=== PATIENT | female | born 1995 | race Caucasian/White ===

== ENCOUNTER 2022-01-16 14:35 | Outpatient (CLI) | payer OTHER, BC, SELFPAY ==
--- NOTE | 2022-01-16 15:00 | CRLHL7_ITS ---
For Patients: As a result of the Cures Act, medical imaging exams and procedure reports are released immediately into your electronic medical record. You may view this report before your referring provider. If you have questions, please contact your health care provider. INDICATION: Dating and viability. LMP 11/19/2021. COMPARISON: None. TECHNIQUE: Real-time gallardo-scale imaging of the pelvis was performed. FINDINGS: Sonographic imaging demonstrates a single living intrauterine gestation. The embryo has a regular cardiac rate measuring 179 beats per minute. The embryo`s crown-rump length measurement of 2.0 cm corresponds to a gestational age of 8 weeks 4 days with a sonographic due date of 08/24/2022. There is a normal-appearing yolk sac and a developing placenta. There is a 0.5 cm umbilical cord cyst. No evidence of a perigestational hemorrhage. The cervix appears closed. Small nabothian cyst in the cervix. The right ovary measures 3.7 x 1.7 x 2.5 cm and the left ovary measures 3.0 x 1.5 x 2.0 cm. Corpus luteum in the right ovary. No free fluid in the cul-de-sac. IMPRESSION: 1. Single living intrauterine gestation with crown rump length 2.0 cm which corresponds to a gestational age of 8 weeks 4 days with a sonographic due date of 08/24/2022. 2. The clinical gestational age by LMP is 8 weeks 2 days. 3. Subcentimeter umbilical cord cyst. Recommend attention on follow up. Dictated by Mahi Lechuga MD @ 01/16/2022 3:47:15 PM (Electronically Signed)
== END 2022-01-16 14:36 | disposition home or self-care (01) ==
LOC: US 14:41
PROVIDERS: Visit Provider Registered Nurse
DX: Z34.91 Encounter for supervision of normal pregnancy, unspecified, first trimester (principal); Z3A.08 8 weeks gestation of pregnancy
CPT/HCPCS: 76817

== ENCOUNTER 2022-01-16 15:50 | Outpatient (CLI) | payer OTHER, BC, SELFPAY ==
[2022-01-16 18:19] LABS: Hepatitis B Surface Antigen* Negative (Negative)
[2022-01-16 18:28] LABS: HIV 1/2/P24 Combo Screen* Negative (Negative)
[2022-01-16 18:37] LABS: Hepatitis C Virus Antibody* Negative (Negative)
[2022-01-17 11:41] LABS: Chlamydia DNA Amplified* NOT DETECTED (No Detected); GC DNA Amplified* NOT DETECTED (No Detected)
[2022-01-18 17:29] LABS: Rubella Antibody IgG 21.9 IU/mL
[2022-01-19 04:08] LABS: Rapid Plasma Reagin (RPR) Non Reactive (Non Reactive)
== END 2022-01-16 15:51 | disposition home or self-care (01) ==
PROVIDERS: Visit Provider Registered Nurse
DX: Z34.90 Encounter for supervision of normal pregnancy, unspecified, unspecified trimester (principal)
CPT/HCPCS: 86592; 86703; 86762; 86803; 86850; 86900; 86901; 87086; 87340; 87491; 87591

== ENCOUNTER 2022-02-13 07:52 | Outpatient (CLI) | payer OTHER, BC, SELFPAY ==
--- NOTE | 2022-02-13 08:15 | CRLHL7_ITS ---
For Patients: As a result of the Century Cures Act, medical imaging exams and procedure reports are released immediately into your electronic medical record. You may view this report before your referring provider. If you have questions, please contact your health care provider. INDICATION: f/u umb cord cyst COMPARISON: 01.16.22 TECHNIQUE: Real-time gallardo-scale imaging of the pelvis was performed. FINDINGS: Sonographic imaging demonstrates a single living intrauterine gestation. The embryo demonstrates a regular cardiac rate measuring 154 beats per minute. The embryo`s crown-rump length measurement of 6.9 cm corresponds to a gestational age of 13 weeks 1 day with a sonographic due date of 08/20/2022. The yolk sac is not visualized. There are no gross abnormalities noted within the embryo at this early state of development. The gestational sac has a normal appearance. There is no evidence of a perigestational hemorrhage. The amount of fluid within the sac appears appropriate for gestational age. Normal ovaries. IMPRESSION: Resolution of previously noted umbilical cord cyst. Dictated by Federico Gunn MD @ 02/13/2022 10:13:34 AM (Electronically Signed)
== END 2022-02-13 07:53 | disposition home or self-care (01) ==
LOC: US 07:52
PROVIDERS: Visit Provider Registered Nurse
DX: O36.8910 Maternal care for other specified fetal problems, first trimester, not applicable or unspecified (principal)
CPT/HCPCS: 76816

== ENCOUNTER 2022-04-11 09:10 | Outpatient (CLI) | payer OTHER, BC, SELFPAY ==
--- NOTE | 2022-04-11 09:15 | CRLHL7_ITS ---
For Patients: As a result of the Century Cures Act, medical imaging exams and procedure reports are released immediately into your electronic medical record. You may view this report before your referring provider. If you have questions, please contact your health care provider. INDICATION: Evaluate anatomy. COMPARISON: 02/13/2022, 01/16/2022 TECHNIQUE: Real time gallardo scale imaging of the fetus was performed as well as color Doppler analysis of the umbilical vessels. FINDINGS: Sonographic imaging demonstrates a single living intrauterine gestation. Fetus demonstrates a regular cardiac rate of 142 beats per minute. Fetus has a transverse position, head maternal right. The placenta lies anteriorly. Edge of the placenta is located 1.7 cm from the internal cervical os on transvaginal imaging. Amniotic fluid volume appears normal. Single deepest vertical pocket: 3.0 cm. The cervix is closed and measures 3.4 cm in length. The composite ultrasound gestational age is calculated at 21 weeks 0 days with an estimated sonographic due date of 08/22/2022. The estimated weight is 433 grams which lies at the 95th %. The following biometric measurements were obtained: Biparietal diameter: 4.7 cm/20 weeks 1 day 40th% Head circumference: 18.1 cm/20 weeks 3 days 43rd% Abdominal circumference: 17.0 cm/22 weeks 0 days 88th% Femur length: 3.6 cm/21 weeks 3 days 78th% The HC/AC ratio measures: 1.06 range (1.06-1.25) On anatomic survey, there is a normal appearance of the cerebral ventricles, cavum septi pellucidi, cisterna magna and cerebellum. The nose, lips, and facial profile appear normal. The cervical, thoracic and lumbar spine are well visualized and appear normal. There is a normal four-chamber heart view and the left and right ventricular outflow tracts appear normal. The diaphragm and stomach appear normal. The kidneys and bladder also appear normal. There is a normal three-vessel cord and cord insertion site. The four extremities appear normal. IMPRESSION: Concordance of clinical and sonographic dating. No intrinsic abnormalities noted on anatomic survey. Low lying placenta located 1.7 cm from the internal cervical os. Dictated by Federico Gunn MD @ 04/12/2022 9:38:29 AM (Electronically Signed)
== END 2022-04-11 09:11 | disposition home or self-care (01) ==
PROVIDERS: Visit Provider Obstetrics & Gynecology
DX: O44.42 Low lying placenta NOS or without hemorrhage, second trimester (principal); Z3A.20 20 weeks gestation of pregnancy
CPT/HCPCS: 76805; 76817

== ENCOUNTER 2022-06-05 10:43 | Outpatient (CLI) | payer OTHER, SELFPAY ==
[2022-06-05 11:01] VITALS: BP 127/59; PULSE 82
--- NOTE | 2022-06-05 11:34 | CRLHL7_ITS ---
For Patients: As a result of the Century Cures Act, medical imaging exams and procedure reports are released immediately into your electronic medical record. You may view this report before your referring provider. If you have questions, please contact your health care provider. INDICATION: Right flank pain. TECHNIQUE: Ultrasound renal and bladder complete. Corea-scale and color Doppler sonographic images were acquired of the kidneys and urinary bladder. COMPARISON: None. FINDINGS: Right kidney: 13 cm. Left kidney: 13.3 cm. Normal echotexture and cortex. Right renal cyst. Two small foci of questionable twinkle artifacts without discrete posterior acoustic shadowing or echogenicity. Mild prominence of the collecting system/mild hydronephrosis. Bladder: Bladder is relatively decompressed. IMPRESSION: Two small foci of questionable twinkle artifacts without discrete posterior acoustic shadowing or echogenicity. Findings are equivocal for tiny nonobstructing stones. Mild prominence of the collecting system/mild hydronephrosis, which can be seen in the setting physiologic hydronephrosis of . Dictated by Federico Head MD @ 06/05/2022 1:42:31 PM (Electronically Signed)
--- NOTE | 2022-06-05 11:37 | PM.OBLDTN ---
Documented by User: Echo Diaz CNM 06/05/22 16:28 OB - Triage/Final Diagnosis Visit Information Time Seen by Provider: 11:37 Date Seen: 06/05/22 Date of evaluation: 06/05/22 Narrative: Tammi is a 27 year old 1 para 0 at 28 2/7 weeks gestation by LMP, who presents with right sided flank pain. Tammi reports that pain started around 8am and is so intense she can not sit or walk without difficulty. Stated that she tried warm baths, 1000mg of Tylenol, stretching and rest - nothing seemed to help. Denies any contractions, abnormal vaginal discharge or bleeding, cramping, urinary frequency or retention, or dysuria. Tammi reports that she drinks a lot of water every day, but has had very little to drink or eat today. Pt presents from: Home GA: 28 2/7w C/o: Right sided flank pain movement: active Ctx: denies ROM: denies Bleeding: denies Discharge: denies Assessment/plan: 27 yo G1PO @ 28 2/7 Weeks Right sided flank pain Mild CVA tenderness Small Kidney Stones noted on renal ultrasound Consulted with Dr. Carrera Recommended pt increase oral hydration in effort to flush out calculi, or receive IV hydration - pt opts for oral hydration at home. Oxycodone for pain, until symptoms resolve. Follow up at routine visit in 2 days or sooner if symptoms worsen, or fever presents Reason for evaluation: other (Right sided flank pain.) Evaluation Laboratory results: Laboratory Tests 06/05/22 Range/Units 11:01 Urine Color Pending Urine Appearance Pending Urine pH Pending Ur Specific [place] Pending Urine Protein Pending Urine Glucose (UA) Pending Urine Ketones Pending Urine Blood Pending Urine Nitrite Pending Urine Bilirubin Pending Urine Urobilinogen Pending Ur Leukocyte Esterase Pending Vital signs: Vital Signs - 24 hr 06/05/22 11:01 Pulse Rate 82 Blood Pressure 127/59 L Comments: Vital Signs Stable, afebrile FHTs: Baseline: 135 Variability: Moderate Accels: Present Decels: Absent Reactive NST - Yes Ctx: none SVE: deferred Renal ultrasound: IMPRESSION: Two small foci of questionable twinkle artifacts without discrete posterior acoustic shadowing or echogenicity. Findings are equivocal for tiny nonobstructing stones. Mild prominence of the collecting system/mild hydronephrosis, which can be seen in the setting physiologic hydronephrosis of . Final Diagnosis (1) Kidney stone complicating : Status: Acute (2) Supervision of normal first in third trimester: Status: Acute (3) Flank pain in patient: Status: Acute Documented by User: Thuy Pal CNM 06/05/22 16:27 OB - Triage/Final Diagnosis Visit Information Narrative: Tammi is a 27 year old 1 para 0 at 28 2/7 weeks gestation by LMP, who presents with right sided flank pain. Tammi reports that pain started around 8am and is so intense she can not sit or walk without difficulty. Stated that she tried warm baths, 1000mg of Tylenol, stretching and rest - nothing seemed to help. Denies any contractions, abnormal vaginal discharge or bleeding, cramping, urinary frequency or retention, or dysuria. Tammi reports that she drinks a lot of water every day, but has had very little to drink or eat today. Pt presents from: Home GA: 28 2/7w C/o: Right sided flank pain movement: active Ctx: denies ROM: denies Bleeding: denies Discharge: denies Assessment/plan: 27 yo G1PO @ 28 2/7 Weeks Right sided flank pain Mild CVA tenderness Small Kidney Stones noted on renal ultrasound Consulted with Dr. Carrera Recommended pt increase oral hydration in effort to flush out calculi, or receive IV hydration - pt opts for oral hydration at home. Declined Flomax Referral for urology placed Oxycodone for pain, until symptoms resolve. Follow up at routine visit in 2 days or sooner if symptoms worsen, or fever presents Evaluation Comments: Vital Signs Stable, afebrile FHTs: Baseline: 135 Variability: Moderate Accels: Present Decels: Absent Reactive NST - Yes Ctx: none SVE: deferred Abdomen: non tender, gravid Musculoskeletal: Mild CVA tenderness on right side Renal ultrasound:
[2022-06-05 11:40] LABS: Appearance Urine Slightly Cloudy (Clear); Bilirubin Urine Negative (Negative); Blood Urine Trace-lysed (Negative); Color Urine Yellow (Yellow); Glucose Urine Negative (Negative); Ketones Urine Negative (Negative); Leukocyte Esterase Urine 1+ (Negative); Nitrite Urine Negative (Negative); Protein Urine 1+ (Negative); Urobilinogen Urine 0.2 (0.2-1.0)
[2022-06-05 11:51] LABS: Bacteria Urine Many; Squamous Epithelial Cell Urine Moderate (None-Few)
[2022-06-05] MEDS: OXYCODONE 5 MG TABLET PO (12:13)
[2022-06-05 12:17] VITALS: PULSE 84; O2SAT 98
--- NOTE | 2022-06-05 15:37 | PC.OBNST ---
NST Note NST Note Start: 06/05/22 10:53 Freq: ONCE Status: Active Protocol: Document 06/05/22 14:00 ABP (Rec: 06/05/22 15:36 ABP [id number]) NST Note 1 Para (# of births) 0 EDC 08/26/22 Gestational Age In Weeks & Days 28 Weeks & 2 Days Patient Presented with Complaint(s) of Pain If Pain, describe location Back pain Other Complaints Patient diagnosed with 2 kidney stones. Reactive Yes Appropriate for Gestational Age Yes AKIRA Helms, AKIRA Date 06/05/22 Reactive Yes Appropriate for Gestational Age Yes AKIRA Wallis RN Date 06/05/22 OB NST charge Yes Complete NST Note via Write Note Yes The provider's electronic signature indicates the NST is reactive/appropriate for gestational age. *Note to provider: If an addendum is required, open the patient's chart and click on the note under the Nurse/Allied Health tab.
== END 2022-06-05 14:00 | disposition home or self-care (01) ==
LOC: OB OUT 10:43 → OB 10:45
PROVIDERS: Visit Provider Advanced Practice Midwife
DX: O26.839 Pregnancy related renal disease, unspecified trimester (principal); N20.0 Calculus of kidney; R10.9 Unspecified abdominal pain; Z3A.28 28 weeks gestation of pregnancy
CPT/HCPCS: 59025; 76775; 81003; 81015; 87086; 99213; A9270

== ENCOUNTER 2022-06-07 08:09 | Outpatient (CLI) | payer OTHER, SELFPAY ==
--- NOTE | 2022-06-07 08:15 | CRLHL7_ITS ---
For Patients: As a result of the Century Cures Act, medical imaging exams and procedure reports are released immediately into your electronic medical record. You may view this report before your referring provider. If you have questions, please contact your health care provider. INDICATION: Placental location f/u COMPARISON: 04/11/2022 TECHNIQUE: Real time gallardo scale imaging of the fetus was performed. FINDINGS: Sonographic imaging demonstrates a single living intrauterine gestation. Fetus demonstrates a regular cardiac rate of 157 beats per minute. Fetus has a vertex position. The placenta lies anteriorly without evidence of placenta previa. The edge of the placenta is located 6.4 cm from the internal cervical os with transvaginal imaging. Amniotic fluid volume appears normal and there is a single deepest vertical pocket: 7.5 cm. LUCINDA 20.9 cm. IMPRESSION: Anterior placenta 6.4 cm from the internal cervical os. No previa. Dictated by Federico Gunn MD @ 06/07/2022 2:37:36 PM (Electronically Signed)
== END 2022-06-07 08:10 | disposition home or self-care (01) ==
LOC: US 08:09
PROVIDERS: Visit Provider Advanced Practice Midwife
DX: O44.40 Low lying placenta NOS or without hemorrhage, unspecified trimester (principal)
CPT/HCPCS: 76816; 86592

== ENCOUNTER 2022-06-12 09:41 | Outpatient (CLI) | payer OTHER, SELFPAY ==
[2022-06-12 07:48] LABS: Glucose Fasting Check 85 mg/dl (60-115)
[2022-06-12 12:03] LABS: Glucose GTT-Gestational 3 Hr 99 mg/dl (70-140)
[2022-06-12 12:03] LABS: Glucose 1 Hour Gest 148 mg/dl (70-180)
== END 2022-06-12 09:42 | disposition home or self-care (01) ==
PROVIDERS: Visit Provider Advanced Practice Midwife
DX: Z34.03 Encounter for supervision of normal first pregnancy, third trimester (principal); Z3A.30 30 weeks gestation of pregnancy
CPT/HCPCS: 82951; 82952

== ENCOUNTER 2022-07-05 14:06 | Outpatient (CLI) | payer OTHER, SELFPAY ==
[2022-07-05 16:13] LABS: Creatinine* 0.7 mg/dL (0.5-1.5); Estimated Glomerular Filt Rate 122 ml/min
[2022-07-05 16:14] LABS: Alanine Aminotransferase* 16 U/L (4-35); Aspartate Amino Transferase* 19 U/L (12-35); Blood Urea Nitrogen* 9 mg/dL (5-24)
[2022-07-05 16:24] LABS: Total Protein Urine 18 mg/dL
[2022-07-05 16:27] LABS: Creatinine Urine 49.4 mg/dL
== END 2022-07-05 14:07 | disposition home or self-care (01) ==
PROVIDERS: Visit Provider Advanced Practice Midwife
DX: Z34.93 Encounter for supervision of normal pregnancy, unspecified, third trimester (principal); R03.0 Elevated blood-pressure reading, without diagnosis of hypertension; Z3A.32 32 weeks gestation of pregnancy
CPT/HCPCS: 82565; 82570; 84156; 84450; 84460; 84520

== ENCOUNTER 2022-07-10 14:49 | Outpatient (CLI) | payer OTHER, SELFPAY ==
[2022-07-10 21:40] LABS: Total Protein Urine 26 mg/dL
[2022-07-10 21:42] LABS: Creatinine Urine 58.5 mg/dL
[2022-07-10 22:30] LABS: Collection Time Urine 24 Hours; Total Protein 24 Hour Urine 572 mg/dL; Total Volume 24 Hour Urine 2200 ml; Urine Creatinine mg/24 Hour 0 mg/Day
== END 2022-07-10 14:50 | disposition home or self-care (01) ==
LOC: NFLDREF 14:49
PROVIDERS: Visit Provider Advanced Practice Midwife
DX: Z34.93 Encounter for supervision of normal pregnancy, unspecified, third trimester (principal); Z3A.36 36 weeks gestation of pregnancy; R03.0 Elevated blood-pressure reading, without diagnosis of hypertension
CPT/HCPCS: 82570; 84156

== ENCOUNTER 2022-07-12 21:38 | Outpatient (CLI) | payer OTHER, SELFPAY ==
[2022-07-12] VITALS (7 sets, daily range): BP systolic 116–129; BP diastolic 58–74; PULSE 83–97; RESP 16; TEMP 36.8; O2SAT 98
[2022-07-12 22:05] LABS: Hemoglobin* 11.1 gm/dL (12.0-16.0); Mean Corpuscular HGB Conc 34 gm/dL (32-36); Mean Corpuscular Hemoglobin 31 pg (26-34); Mean Corpuscular Volume 91 fL (80-100); Platelet Count* 305 K/uL (140-440); Red Blood Count 3.62 m/uL (4.00-5.20); White Blood Count* 12.39 K/uL (4.50-11.00)
[2022-07-12 22:11] LABS: Slide Review Reflex No
[2022-07-12 22:23] LABS: Creatinine* 0.5 mg/dL (0.5-1.5); Estimated Glomerular Filt Rate 133 ml/min
[2022-07-12 22:24] LABS: Total Protein Urine 28 mg/dL
[2022-07-12 22:24] LABS: Alanine Aminotransferase* 20 U/L (4-35); Aspartate Amino Transferase* 20 U/L (12-35); Blood Urea Nitrogen* 8 mg/dL (5-24)
[2022-07-12 22:36] LABS: Appearance Urine Clear (Clear); Bilirubin Urine Negative (Negative); Blood Urine Trace-intact (Negative); Color Urine Yellow (Yellow); Glucose Urine Negative (Negative); Ketones Urine Negative (Negative); Leukocyte Esterase Urine Negative (Negative); Nitrite Urine Negative (Negative); Protein Urine Negative (Negative); Specific Gravity Urine 1.015 (1.000-1.030); Urobilinogen Urine 0.2 (0.2-1.0)
[2022-07-12 23:00] LABS: WBC Urine 0-2 (0-5)
[2022-07-12 23:06] LABS: Trichomonas No Trichomonas Seen (None Seen); Yeast No Yeast Seen (None Seen)
[2022-07-12 23:07] LABS: Clue Cells <20% Clue Cells Seen (None Seen)
--- NOTE | 2022-07-12 23:33 | P.OBLDTN_ITS ---
Documented by User: Echo iDaz CNM 07/13/22 00:05 OB - Triage/Final Diagnosis Visit Information Time Seen by Provider: 23:33 Date Seen: 07/12/22 Date of evaluation: 07/12/22 Narrative: Subjective Pt had elevated blood pressure in clinic, with elevated pressures on repeat. 24 hr urine returned with Total Protein of 572 and PCR of 0.4. Pt instructed to monitor blood pressures at home and call with readings over 140/90. Pt called tonight for pressures in the 140's/90's. She came into triage for monitoring and labs. BPs were all WNL while in Triage. Denies any other symptoms including headaches, URQ pain, vision changes or pain. Endorsed good movement. Denies loss of fluid, vaginal bleeding or abnormal discharge. TOCO monitor picking up contractions, but pt denies feeling them. Pt reported that her home BP cuff is a wrist cuff, it has not been calibrated in clinic. Pt stated she would like to have an arm cuff for home. Objective Labs: Urine: PCR 0.8, UA - negative for infection, positive for blood Wet prep: negative for Yeast and Trichomoniasis, <20% clue cells Physical: VSS FHTs: Baseline: 135 Variability: Moderate Accels: Present Decels: Absent Reactive NST - Yes Ctx: Q 2-4 min Assessment/Plan 27 yo @ 33w 4d Elevated blood pressure in clinic, blood pressures in triage all WNL. Continue to monitor blood pressures at home BID, pt to call with readings over 140/90 or pre-eclampsia symptoms Discussed presence of blood in urine that could impact the PCR labs. Blood may be related to recently passed kidney stones. Return to clinic in 3 days for blood pressure check. Reason for evaluation: other (Elevated blood pressure readings at home) Evaluation Laboratory results: Laboratory Tests 07/12/22 07/12/22 07/12/22 Range/Units 22:49 22:28 21:58 WBC (4.50-11.00) K/uL RBC (4.00-5.20) m/uL Hgb (12.0-16.0) gm/dL Hct (33.0-51.0) % MCV (80-100) fL MCH (26-34) pg MCHC (32-36) gm/dL Plt Count (140-440) K/uL BUN 8 (5-24) mg/dL Creatinine 0.5 (0.5-1.5) mg/dL Estimated GFR 133 ml/min AST 20 (12-35) U/L ALT 20 (4-35) U/L Urine Color Yellow (Yellow) Urine Appearance Clear (Clear) Urine pH 7.0 (5.0-8.5) Ur Specific [place] 1.015 (1.000-1.030) Urine Protein Negative (Negative) Urine Glucose (UA) Negative (Negative) Urine Ketones Negative (Negative) Urine Blood Trace-intact A (Negative) Urine Nitrite Negative (Negative) Urine Bilirubin Negative (Negative) Urine Urobilinogen 0.2 (0.2-1.0) Ur Leukocyte Esterase Negative (Negative) Urine RBC 5-10 A (0-2) Urine WBC 0-2 (0-5) Urine WBC Clumps None (None) Ur Squamous Epith Cells None (None-Few) Urine Bacteria None (None) Urine Creatinine mg/dL Protein/Creatinin Ratio (0-0.19) Urine Total Protein mg/dL Vaginal Trichomonas No Trichomonas Seen (None Seen) Vaginal Yeast No Yeast Seen (None Seen) Vaginal Clue Cells <20% Clue Cells Seen (None Seen) 07/12/22 07/12/22 Range/Units 21:58 21:45 WBC 12.39 H (4.50-11.00) K/uL RBC 3.62 L (4.00-5.20) m/uL Hgb 11.1 L (12.0-16.0) gm/dL Hct 33.0 (33.0-51.0) % MCV 91 (80-100) fL MCH 31 (26-34) pg MCHC 34 (32-36) gm/dL Plt Count 305 (140-440) K/uL BUN (5-24) mg/dL Creatinine (0.5-1.5) mg/dL Estimated GFR ml/min AST (12-35) U/L ALT (4-35) U/L Urine Color (Yellow) Urine Appearance (Clear) Urine pH (5.0-8.5) Ur Specific [place] (1.000-1.030) Urine Protein (Negative) Urine Glucose (UA) (Negative) Urine Ketones (Negative) Urine Blood (Negative) Urine Nitrite (Negative) Urine Bilirubin (Negative) Urine Urobilinogen (0.2-1.0) Ur Leukocyte Esterase (Negative) Urine RBC (0-2) Urine WBC (0-5) Urine WBC Clumps (None) Ur Squamous Epith Cells (None-Few) Urine Bacteria (None) Urine Creatinine 32.0 mg/dL Protein/Creatinin Ratio 0.80 H (0-0.19) Urine Total Protein 28 mg/dL Vaginal Trichomonas (None Seen) Vaginal Yeast (None Seen) Vaginal Clue Cells (None Seen) Vital signs: Vital Signs - 24 hr 07/12/22 22:09 07/12/22 22:01 07/12/22 22:04 Temperature 98.2 F Pulse Rate 88 Respiratory Rate 16 Blood Pressure 119/67 Pulse Oximetry 98 07/12/22 22:21 07/12/22 22:36 07/12/22 22:50 Temperature Pulse Rate 83 94 90 Respiratory Rate Blood Pressure 119/68 129/74 117/72 Pulse Oximetry 07/12/22 23:07 Temperature Pulse Rate 91 Respiratory Rate Blood Pressure 116/58 L Pulse Oximetry Final Diagnosis (1) Elevated blood pressure reading without diagnosis of hypertension: Status: Acute (2) : Status: Acute Documented by User: Thuy Pal CNM 07/13/22 00:10 OB - Triage/Final Diagnosis Visit Information Narrative: Subjective Pt had elevated blood pressure in clinic, with elevated pressures on repeat. Labs WNL and PC ratio 0.3. 24 hr urine returned with Total Protein of 572 and PCR of 0.4. Pt instructed to monitor blood pressures at home and call with readings over 140/90. Pt called tonight for pressures in the 140's/90's. She came into triage for monitoring and labs. BPs were all WNL while in Triage. Denies any other symptoms including headaches, URQ pain, vision changes or pain. Endorsed good movement. Denies loss of fluid, vaginal bleeding or abnormal discharge. TOCO monitor picking up contractions, but pt denies feeling them. Pt reported that her home BP cuff is a wrist cuff, it has not been calibrated in clinic. Pt stated she would like to have an arm cuff for home. Objective Labs: Urine: PCR 0.8, UA - negative for infection, positive for blood Wet prep: negative for Yeast and Trichomoniasis, <20% clue cells Physical: VSS FHTs: Baseline: 135 Variability: Moderate Accels: Present Decels: Absent Reactive NST - Yes Ctx: Q 2-4 min Assessment/Plan 27 yo @ 33w 4d Elevated blood pressure in clinic, blood pressures in triage all WNL. Continue to monitor blood pressures at home BID, pt to call with readings over 140/90 or pre-eclampsia symptoms Discussed presence of blood in urine that could impact the PCR labs. Blood may be related to recently passed kidney stones. Return to clinic in 3 days for blood pressure check. Final Diagnosis (1) Elevated blood pressure reading without diagnosis of hypertension: Status: Acute (2) : Status: Acute
--- NOTE | 2022-07-13 00:30 | PC.OBNST ---
NST Note NST Note Start: 07/12/22 21:45 Freq: ONCE Status: Discharge Protocol: Document 07/13/22 00:21 [facility] (Rec: 07/13/22 00:23 [facility] [id number]) NST Note 1 Para (# of births) 0 EDC 08/26/22 Gestational Age In Weeks & Days 33 Weeks & 5 Days Patient Presented with Complaint(s) of Other Other Complaints Patient was instructed to take blood pressures at home and called after having a blood pressure reading of 140/95. She was instructed by the provider to come in for evaluation. Reactive Yes Appropriate for Gestational Age Yes AKIRA Duarte, RN Date 07/12/22 Reactive Yes Appropriate for Gestational Age Yes AKIRA Campos RN Date 07/12/22 OB NST charge Yes Complete NST Note via Write Note Yes The provider's electronic signature indicates the NST is reactive/appropriate for gestational age. *Note to provider: If an addendum is required, open the patient's chart and click on the note under the Nurse/Allied Health tab.
== END 2022-07-12 23:30 | disposition home or self-care (01) ==
LOC: OB OUT 21:41 → OB 21:41
PROVIDERS: Advanced Practice Midwife; Visit Provider Advanced Practice Midwife
DX: O16.3 Unspecified maternal hypertension, third trimester (principal); Z3A.33 33 weeks gestation of pregnancy
CPT/HCPCS: 36415; 59025; 81003; 81015; 82565; 82570; 84156; 84450; 84460; 84520; 85027; 87210; 99213

== ENCOUNTER 2022-07-19 07:11 | Outpatient (CLI) | payer OTHER, SELFPAY ==
--- NOTE | 2022-07-19 07:18 | CRLHL7_ITS ---
For Patients: As a result of the Century Cures Act, medical imaging exams and procedure reports are released immediately into your electronic medical record. You may view this report before your referring provider. If you have questions, please contact your health care provider. OB US/BIOPHYSICAL PROFILE, 07/19/2022 INDICATION: Pre E, growth and BPP. TYESHA by LMP: 08/26/2022. GA: 34 w, 4 d. COMPARISON: [facility] 04/11/2022. positioning: Vertex. Amniotic fluid: 6.3 cm SDP (N increase 2 x 1 cm) TECHNIQUE: Transabdominal. Placenta: Anterior. Biophysical profile: Total score: 8/8. Gross body movements: 2. tone: 2. Respiratory activity: 2. Amniotic fluid: 2. (SDP N: Increase 2 x 1 cm) Cervix: Not visualized. Doppler: heart rate: 152 bpm. Biometry: BPD: 8.1 cm. 32 w, 3 d, 5 percent. HC: 30.1 cm. 33 w, 2 d, 3 percent. AC: 33.4 cm. 37 w, 2 d, >97 percent. FL: 6.9 cm. 35 w, 2 d, 59 percent. FL/AC ratio: 20.5 percent. HC/AC ratio: 0.9. EFW: 2767 g. Weight: 6 lbs, 2 oz. age by this US: 34 w, 4 d. TYESHA by this US: 08/26/2022. Percentile by TYESHA: 80 percent. IMPRESSION: 1. Single live intrauterine gestation with composite gestational age is 34 weeks 4 days TYESHA of 08/26/2022. 2. Estimated weight is 2767 grams which lies at the 80th percentile. 3. Biophysical profile score 8/8. Annetta Richardson M.D. Diagnostic/Breast Radiologist [email or web address] Transcribed: 8:57 a.m. JR/Dictated by: Annetta Richardson MD @ 07/19/2022 8:23:00 AM (Electronically Signed)
== END 2022-07-19 07:12 | disposition home or self-care (01) ==
LOC: US 07:12
PROVIDERS: Visit Provider Advanced Practice Midwife
DX: O14.93 Unspecified pre-eclampsia, third trimester (principal); Z3A.34 34 weeks gestation of pregnancy
CPT/HCPCS: 76816; 76819; 82565; 82570; 84156; 84450; 84460; 84520

== ENCOUNTER 2022-07-24 09:47 | Outpatient (CLI) | payer OTHER, SELFPAY | END 2022-07-24 09:48 | disposition home or self-care (01) | LOC: NFLDREF 08-01 12:11 | PROVIDERS: Visit Provider Advanced Practice Midwife | DX: O14.93 Unspecified pre-eclampsia, third trimester (principal); Z3A.35 35 weeks gestation of pregnancy | CPT/HCPCS: 87081; 87653 ==

== ENCOUNTER 2022-07-26 08:04 | Outpatient (CLI) | payer OTHER, SELFPAY | END 2022-07-26 08:05 | disposition home or self-care (01) | LOC: NFLDREF 08-02 09:33 | PROVIDERS: Visit Provider Advanced Practice Midwife | DX: O14.93 Unspecified pre-eclampsia, third trimester (principal); Z3A.35 35 weeks gestation of pregnancy | CPT/HCPCS: 82565; 82570; 84156; 84450; 84460; 84520 ==

== ENCOUNTER 2022-07-26 08:06 | Outpatient (CLI) | payer OTHER, SELFPAY ==
--- NOTE | 2022-07-26 08:41 | CRLHL7_ITS ---
For Patients: As a result of the Century Cures Act, medical imaging exams and procedure reports are released immediately into your electronic medical record. You may view this report before your referring provider. If you have questions, please contact your health care provider. INDICATION: 27 year-old female. Assess well-being. COMPARISON: July 19, 2022. TECHNIQUE: Real time gallardo scale imaging of the fetus was performed. Without non-stress testing. FINDINGS: Sonographic imaging demonstrates a single living intrauterine gestation. Fetus demonstrates a regular cardiac rate of 157 beats per minute. Fetus has a vertex orientation. The amniotic fluid volume appears toward the upper limit of normal and there is a four-quadrant fluid volume index measurement of 23.4 cm. The single deepest pocket measurement is 8.1 cm. The fetus was active and demonstrated normal breathing movements. There was normal flexion and extension of the trunk and extremities. IMPRESSION: Normal biophysical profile score of 8 out of 8. Dictated by Sundar Esquivel MD @ 07/26/2022 10:26:48 AM (Electronically Signed)
== END 2022-07-26 08:07 | disposition home or self-care (01) ==
LOC: US 08:07
PROVIDERS: Visit Provider Advanced Practice Midwife
DX: O14.90 Unspecified pre-eclampsia, unspecified trimester (principal)
CPT/HCPCS: 76819

== ENCOUNTER 2022-08-02 07:09 | Outpatient (CLI) | payer OTHER, SELFPAY ==
--- NOTE | 2022-08-02 07:15 | CRLHL7_ITS ---
For Patients: As a result of the Century Cures Act, medical imaging exams and procedure reports are released immediately into your electronic medical record. You may view this report before your referring provider. If you have questions, please contact your health care provider. INDICATION: Preeclampsia COMPARISON: 07/26/2022 TECHNIQUE: Real time gallardo scale imaging of the fetus was performed. Without non-stress testing. FINDINGS: Sonographic imaging demonstrates a single living intrauterine gestation. Fetus demonstrates a regular cardiac rate of 154 beats per minute. Fetus has a vertex position. The amniotic fluid volume appears normal and there is a single deepest pocket measurement of 8.2 cm. LUCINDA 18.2 cm. The fetus was active and demonstrated normal breathing movements. There was normal flexion and extension of the trunk and extremities. IMPRESSION: Normal biophysical profile score of 8 out of 8. Dictated by Federico Gunn MD @ 08/02/2022 11:02:41 AM (Electronically Signed)
== END 2022-08-02 07:10 | disposition home or self-care (01) ==
PROVIDERS: Visit Provider Advanced Practice Midwife
DX: O14.90 Unspecified pre-eclampsia, unspecified trimester (principal)
CPT/HCPCS: 76819; 82565; 82570; 84156; 84450; 84460; 84520

== ENCOUNTER 2022-08-05 07:16 | Inpatient (IN) | payer OTHER, SELFPAY ==
[2022-08-05] VITALS (24 sets, daily range): BP systolic 116–182; BP diastolic 57–103; PULSE 79–106; RESP 16; TEMP 36.6–36.9; O2SAT 98; BMI 37.0
[2022-08-05] MEDS: miSOPROStoL 25 MCG/0.25 TABLET VAGINAL ×2 (08:13→12:05)
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
[2022-08-05 08:33] LABS: SARS PCR* Negative SARS-CoV-2 (Negative)
[2022-08-05 08:39] LABS: Hematocrit 34.4 % (33.0-51.0); Hemoglobin* 11.3 gm/dL (12.0-16.0); Mean Corpuscular HGB Conc 33 gm/dL (32-36); Mean Corpuscular Hemoglobin 29 pg (26-34); Mean Corpuscular Volume 89 fL (80-100); Platelet Count* 252 K/uL (140-440); Red Blood Count 3.85 m/uL (4.00-5.20); White Blood Count* 11.26 K/uL (4.50-11.00)
[2022-08-05 08:44] LABS: Slide Review Reflex No
[2022-08-05 08:45] LABS: Total Protein Urine 30 mg/dL
[2022-08-05 08:46] LABS: Creatinine Urine 32.6 mg/dL
[2022-08-05 08:56] LABS: Alanine Aminotransferase* 19 U/L (4-35); Aspartate Amino Transferase* 22 U/L (12-35); Blood Urea Nitrogen* 9 mg/dL (5-24); Creatinine* 0.7 mg/dL (0.5-1.5); Est. Creatinine Clearance* 100.75; Estimated Glomerular Filt Rate 122 ml/min
--- NOTE | 2022-08-05 14:39 | P.OBPN_ITS ---
Subjective Date Seen: 08/05/22 Narrative: Tammi is uncomfortable with her contractions, she supported by her partner. She is currently in the tub for pain relief to manage her contraction pain. She continues to leak clear amniotic fluid. She does desire a waterbirth and will be moved to the tub room soon as she is uncomfortable. Last dose of Cytotec given orally at 1205, will reevaluate before next dose. Objective Vital Signs: Last Vital Signs Temp 98.2 F 08/05/22 11:50 Pulse 94 08/05/22 11:50 Resp 16 08/05/22 11:50 BP 132/72 08/05/22 11:50 Pelvic Exam Station: +1 Comments: unable to reach cervix while sitting in tub, posterior and baby low Contractions Monitor mode: External Contraction Frequency: 2-3 Contraction pattern: Regular Assessment Assessment: induction ongoing Station: +1 Amniotic Membrane Status: SROM (clear) Status: Category l Flight Test Supervisor Variability: Moderate (6-25) Monitor Accelerations: Present Monitor Decelerations: None Tracing Comments: wandering baseline 130-150's Plan Plan: PLAN:? 1. Routine intrapartum cares as ordered. Reevaluate before next dose of Cytotec. 2. Monitoring per policy, continuous 3. Patient is a candidate for analgesia of choice. Desires a waterbirth, will move patient to tub room. 4. Patient encouraged to reposition to promote physiologic labor and .?Attempt positions to encourage rotation. 5. Anticipate . CHAVA Michaud with supervision of Janeen Muñoz CNM
[2022-08-05] MEDS: LIDOCAINE 1 % PF 30 ML INJECTION (18:35)
[2022-08-05] MEDS: LABETALOL HCL 5 MG/ML inj IVP (19:07)
[2022-08-05 19:43] LABS: Hematocrit 35.2 % (33.0-51.0); Hemoglobin* 11.9 gm/dL (12.0-16.0); Mean Corpuscular HGB Conc 34 gm/dL (32-36); Mean Corpuscular Hemoglobin 30 pg (26-34); Mean Corpuscular Volume 88 fL (80-100); Platelet Count* 269 K/uL (140-440); Red Blood Count 3.98 m/uL (4.00-5.20); Slide Review Reflex No; White Blood Count* 24.43 K/uL (4.50-11.00)
[2022-08-05] MEDS: LACTATED RINGERS 1000 ML 1,000 ML 75 ML IV (19:47)
[2022-08-05 19:52] LABS: Alanine Aminotransferase* 19 U/L (4-35); Aspartate Amino Transferase* 27 U/L (12-35); Blood Urea Nitrogen* 10 mg/dL (5-24); Creatinine* 0.7 mg/dL (0.5-1.5); Est. Creatinine Clearance* 100.75; Estimated Glomerular Filt Rate 122 ml/min
[2022-08-05] MEDS: ACETAMINOPHEN 500 MG TABLET 1000 MG PO (19:59)
--- NOTE | 2022-08-05 20:09 | PM.OBCN1 ---
OB - CN: HPI Date of Consult Time Seen by Provider: 20:10 Date Seen: 08/05/22 Consult date: 08/05/22 Requesting Physician: Janeen Muñoz CNM Primary Care Provider: Not a Local Provider Consult Narrative Narrative: Tammi is a 27 year old G 1 P 0 at 37 weeks gestation that was admitted to the Center on 08/05/22 for induction of labor for mild preeclampsia. She had a normal spontaneous vaginal delivery, water on 08/05/2022. I was consulted after delivery when the patient had blood pressures of 170-180/110-120 x2. An IV was placed. The patient was placed on magnesium sulfate for seizure prophylaxis and antihypertensive medications were given per protocol. Preeclampsia labs were ordered: AST, ALT, BUN, creatinine, CBC without differential, fibrinogen, INR, PTT. The patient denies headache, visual disturbance, right upper quadrant/midepigastric pain, nausea/vomiting. She complains of a bilateral lower extremity edema. Complains of significant amount of vaginal and rectal pain with repair of second-degree laceration. The patient did not have any analgesics during labor. History History 1 Elective abortions Para 0 Spontaneous abortions Hx # Term Pregnancies Ectopic pregnancies Hx # Pregnancies Multiple births Number of Living Children 0 Labs OB Labs: Lab Assessment Start: 08/05/22 07:26 Freq: ONCE Status: Complete Protocol: PC.OBGBS Activity Type Activity Date Activity User E-sign Co-sign Detail Recorded Client Recorded Date Recorded By Document 08/05/22 07:26 [facility] [id number] 08/05/22 08:03 [facility] 08/05/22 07:26 Lab Assessment GBS negative Previous with Invasive GBS No Does Patient Meet Criteria No No Treatment Needed OK Maternal Blood Type A Maternal RH Factor Positive Evaluate Maternal Rubella Immune Status Immune Hepatitis B Surface Antigen Negative Maternal HIV Status Negative Maternal Syphillis (RPR) Status Negative Are Labs Available Yes PFSH PFS Medical History (Updated 08/05/22 @ 20:14 by Harriet Parra MD) Anxiety Flank pain in patient Hymen abnormality Irritable bowel syndrome (normal spontaneous vaginal delivery) Second degree perineal laceration Severe preeclampsia Family History Paternal Grandfather Alpha 1-antitrypsin PiMS phenotype Social History Smoking Status: Never smoker Little interest or pleasure in doing things: not at all Feeling down, depressed, or hopeless: not at all Meds Home Medications and Allergies Home Medications Medication Instructions Recorded Confirmed Type acetaminophen 500 mg tablet 1,000 mg PO Q6H PRN 01/16/22 08/02/22 History (Tylenol Extra Strength) prenat.vits,domonique,[id number] 1 tab PO QDAY 01/16/22 08/02/22 History aspirin 81 mg tablet,delayed 81 mg PO QDAY 02/13/22 08/02/22 History release (Adult Low Dose Aspirin) calcium carbonate 200 mg calcium 200 mg PO TID PRN 02/13/22 08/02/22 History (500 mg) chewable tablet (Tums) Allergies Allergy/AdvReac Type Severity Reaction Status Date / Time No Known Drug Allergies Allergy Verified 08/02/22 08:23 OB - H&P: Exam Physical Exam: Vital signs: Temp Pulse Resp BP 98.2 F 92 16 141/74 H 08/05/22 11:50 08/05/22 20:09 08/05/22 16:43 08/05/22 20:09 Narrative: GENERAL APPEARANCE: Pleasant, , well-groomed woman in no acute distress. VITAL SIGNS: as noted in nursing notes HEAD: Normocephalic, atraumatic. THYROID: no masses, nodularity, tenderness or enlargement. LUNGS: Clear to auscultation bilaterally without wheezes, rales or rhonchi. HEART: Regular rate and rhythm with normal S1 and S2. No gallop, rub or murmur. ABDOMEN: Fundus firm at the umbilicus. EXTREMITIES: No cyanosis, clubbing, or varicosities. 2+ bilateral lower extremity edema to the mid de guzman. NEUROLOGIC: Normal gait and balance. Normal deep tendon reflexes at bilateral patella 2+/2, equal without clonus. PSYCHIATRIC: alert and oriented x3. Normal speech pattern, eye contact and affect. SKIN: Warm, dry, and well perfused. Good turgor. No lesions, nodules or rashes. OB - Results Labs Labs: Short CBC 08/05/22 08/05/22 Range/Units 08:30 19:17 WBC 11.26 H 24.43 H (4.50-11.00) K/uL Hgb 11.3 L 11.9 L (12.0-16.0) gm/dL Hct 34.4 35.2 (33.0-51.0) % Plt Count 252 269 (140-440) K/uL BMP 08/05/22 08/05/22 08:30 19:31 BUN 9 10 Creatinine 0.7 0.7 Liver Function 08/05/22 08/05/22 Range/Units 08:30 19:31 AST 22 27 (12-35) U/L ALT 19 19 (4-35) U/L OB - CN: A/P Assessment and Plan (1) Preeclampsia: Start date: 08/05/22 Start time: 19:00 Status: Acute Assessment and Plan: Severe preeclampsia by blood pressure criteria. 1. Magnesium sulfate 4 g IV load with 2 grams/hour until 24 hours . For seizure prophylaxis. 2. Set of preeclampsia labs ordered. Will repeat every 6 hours if there are abnormalities. 3. OBGYN physicians will follow the patient for care and blood pressure control. 4. Nifedipine XL 30 mg p.o. daily start tonight. (2) 37 weeks gestation of : Status: Acute (3) Encounter for induction of labor: Status: Acute
[2022-08-05 20:10] LABS: INR 0.99 (0.91-1.10); Prothrombin Time 13.7 Seconds
[2022-08-05 20:32] LABS: Fibrinogen* 547 mg/dL (200-450)
--- NOTE | 2022-08-05 22:12 | W.PM.VAGDEL1 ---
Procedure Delivery date: 08/05/22 Procedure Done: Global Events: Pre-Eclampsia and Labor Induction Intrapartal Events: None Delivery monitor: external FHT and external uterine Route of delivery: Episiotomy description: None Laceration description: Perineal - 2nd Degree Delivery repair: Vicryl Estimated blood loss (mL): 125 Anesthesia type: None (local and IV morphine for repair only) Disposition: floor [place] Infant Gender: Female presentation: vertex Placental Delivery Description: Spontaneous Cord Description: 3 Vessels total score - 1 minute: 8 total score - 5 minute: 9 OB Vag Delivery Procedures Additional Procedures Laceration Repair: Yes
--- NOTE | 2022-08-05 22:18 | W.PM.OBVAGDE ---
OB Procedure Vag Delivery Mother Details Mother Details: The patient is a 27 year-old, 1, Para 0, admitted on 08/05/22 at 37.0 Days gestation for IOL for Pre-eclampsia.? Cervical exam on admission was 1 cm/30 % effaced/-2 station with membranes intact in vertex presentation.? Contractions were occasional.? heart rate demonstrated baseline 140 bpm with moderate variability, + accelerations, - decelerations; a category 1 tracing.? SROM occurred at 1120 with clear fluid.? : 1 Para: 1 Weeks Gestation: 37.0 Admission Date: 08/05/22 Additional Details Amniotic Membrane Status: SROM Amniotic Membrane Rupture Date: 08/05/22 Amniotic Membrane Rupture Time: 11:20 Amniotic Membrane Fluid Description: Clear Analgesia/Anesthesia Type: Local (for repair only) and Nitrous Oxide Waterbirth: Yes Pitcoin: No Intrapartal Events: Labor Induction Induction Method: per misoprostol protocol Labor Onset: 17:31 Complete: 17:31 Pushin:31 Heart: heart tones during second stage were category 2. Baseline was 110-120 with moderate variability, +accels, variable decels. She labored in tub and then gradually began to feel the urge to push. She pushed well and delivered spontaneously. She returned to the bed to deliver her placenta and have her laceration repaired. After delivery she developed severe range blood pressures. They were treated with IV labetalol and Magnesium was started. Delivery Details Delivery Date: 08/05/22 Delivery Time: 18:15 Route of delivery: Gender: Female Viability: Alive; Heart Rate Present Position at Delivery: OA Delivery Details: Delivered over intact perineum via spontaneous vaginal delivery. Infant was placed on maternal abdomen.? Cord was clamped and cut after a >5 minute delay. Nose and mouth were bulb suctioned.? weight pending. 1 Minute Interval Total Score: 8 5 Minute Interval Total Score: 9 Additional Details Shoulder Dystocia: No Placenta Delivery Time: 18:29 Placental Delivery Description: Spontaneous Delivery repair: Vicryl Procedure Done: Global Blood Loss: 125 Laceration: Perineal - 2nd Degree Episiotomy Description: None Blood Loss Measurement Type: QBL Bakri Used: No Sponge/Need Count Correct: Yes Cord Vessel Description: 3 Vessels Event Summary Status: Mother and were stable after delivery. Disposition: floor
[2022-08-05] MEDS: IBUPROFEN 600 MG TABLET PO (23:49)
[2022-08-06] VITALS (8 sets, daily range): BP systolic 115–143; BP diastolic 75–90; PULSE 82–96; RESP 16–18; TEMP 36.4–37; O2SAT 96–97
[2022-08-06] MEDS: ACETAMINOPHEN 500 MG TABLET 1000 MG PO ×4 (02:18→20:47)
[2022-08-06 04:38] LABS: Hematocrit 30.8 % (33.0-51.0); Hemoglobin* 10.4 gm/dL (12.0-16.0); Mean Corpuscular HGB Conc 34 gm/dL (32-36); Mean Corpuscular Hemoglobin 30 pg (26-34); Mean Corpuscular Volume 90 fL (80-100); Platelet Count* 272 K/uL (140-440); Red Blood Count 3.43 m/uL (4.00-5.20); White Blood Count* 22.06 K/uL (4.50-11.00)
[2022-08-06 04:40] LABS: Slide Review Reflex No
[2022-08-06 04:53] LABS: Alanine Aminotransferase* 18 U/L (4-35); Aspartate Amino Transferase* 34 U/L (12-35); Blood Urea Nitrogen* 8 mg/dL (5-24); Creatinine* 0.7 mg/dL (0.5-1.5); Est. Creatinine Clearance* 100.75; Estimated Glomerular Filt Rate 122 ml/min
[2022-08-06] MEDS: IBUPROFEN 600 MG TABLET PO ×3 (05:55→18:23)
[2022-08-06] MEDS: LACTATED RINGERS 1000 ML 1,000 ML 75 ML IV (08:05)
[2022-08-06] MEDS: NIFEdipine 30 MG TAB.ER.24 PO (08:18)
--- NOTE | 2022-08-06 09:54 | PM.OBPNVD1 ---
OB - PN:Subj Subjective Date Seen: 08/06/22 Patient comments OB post-: pain well controlled and tolerating diet [place] status: feeding status: exclusively Narrative: The patient feels regular.?She feels tired and groggy. The pain is well controlled with current medications.? Urinary output is adequate and she is voiding without difficulty.? Has a good appetite, is tolerating a general diet, is passing flatus.? Has small amount of rubra lochia.? She is ambulating to the bathroom and around the room feeling fatigued. She is and reports it is going well. Blood pressures have remained normal systolics between 115-129, diastolics between 76-90. Denies PROJECT ESTIMATOR irritability symptoms such as headaches, visual changes or pain in her upper abdomen. Urine output has remained normal. Lab work this morning normal. ? OB - PN: Obj Exam Physical Exam: Vital signs: Temp Pulse Resp BP Pulse Ox O2 Del Method 97.6 F 86 16 119/75 97 08/06/22 08:00 08/06/22 09:47 08/06/22 09:47 08/06/22 09:47 08/06/22 09:47 08/06/22 09:47 Narrative: VITAL SIGNS: As noted above. GENERAL APPEARANCE: Alert, cooperative female in no acute distress. MOOD & AFFECT: Normal. HEART: Regular rate and rhythm without murmurs. LUNGS: Lungs are clear to auscultation bilaterally. No crackles, wheezes, or rhonchi. ABDOMEN: Soft, appropriately tender. : Normal pp lochia EXTREMITIES: Bilateral pitting edema +1. Well perfused. Nontender. NEURO: Intact. OB - PN: Obj Data Labs Labs: Laboratory Results - last 24 hr 08/05/22 08/05/22 08/05/22 19:15 19:17 19:17 WBC 24.43 H RBC 3.98 L Hgb 11.9 L Hct 35.2 MCV 88 MCH 30 MCHC 34 Plt Count 269 INR 0.99 Fibrinogen 547 H BUN Creatinine Estimated Creat Clear Estimated GFR AST ALT Blood Type A Positive Antibody Screen NEGATIVE 08/05/22 08/06/22 08/06/22 19:31 04:30 04:30 WBC 22.06 H RBC 3.43 L Hgb 10.4 L Hct 30.8 L MCV 90 MCH 30 MCHC 34 Plt Count 272 INR Fibrinogen BUN 10 8 Creatinine 0.7 0.7 Estimated Creat Clear 100.75 100.75 Estimated GFR 122 122 AST 27 34 ALT 19 18 Blood Type Antibody Screen OB - PN: A/P Vaginal Delivery Assessment and Plan (1) Preeclampsia: Status: Resolved (2) 37 weeks gestation of : Status: Acute (3) Encounter for induction of labor: Status: Acute (4) Severe preeclampsia: Status: Acute Assessment and Plan: Continue magnesium sulfate infusion to complete 24 hours . Continue strict monitoring of input and urine output. Lab work normal this morning. Will plan to repeat labs tomorrow morning, otherwise if there is any significant change throughout the day such as severely elevated blood pressures, any development of PROJECT ESTIMATOR irritability symptoms will repeat lab work today. Continue close monitoring of blood pressures. Patient was started on oral antihypertensive medication will continue to monitor blood pressures to alter dose as needed. Plan Plan: routine care
[2022-08-07 00:07] VITALS: BP 118/80; PULSE 82; RESP 16; TEMP 36.8; O2SAT 97
[2022-08-07] MEDS: IBUPROFEN 600 MG TABLET PO ×3 (00:14→12:31)
[2022-08-07] MEDS: ACETAMINOPHEN 500 MG TABLET 1000 MG PO ×3 (03:34→15:29)
[2022-08-07 03:35] VITALS: BP 127/83; PULSE 85; RESP 16; TEMP 36.6; O2SAT 98
[2022-08-07 07:15] VITALS: BP 137/92; PULSE 78; RESP 18; TEMP 36.9
[2022-08-07] MEDS: NIFEdipine 30 MG TAB.ER.24 PO (07:25)
[2022-08-07 08:45] LABS: Hemoglobin* 9.8 gm/dL (12.0-16.0); Mean Corpuscular HGB Conc 33 gm/dL (32-36); Mean Corpuscular Hemoglobin 30 pg (26-34); Mean Corpuscular Volume 92 fL (80-100); Platelet Count* 268 K/uL (140-440); Red Blood Count 3.28 m/uL (4.00-5.20); White Blood Count* 14.32 K/uL (4.50-11.00)
[2022-08-07 08:54] LABS: Slide Review Reflex No
[2022-08-07 09:02] LABS: Alanine Aminotransferase* 19 U/L (4-35); Aspartate Amino Transferase* 30 U/L (12-35); Blood Urea Nitrogen* 14 mg/dL (5-24); Creatinine* 0.9 mg/dL (0.5-1.5); Est. Creatinine Clearance* 78.36; Estimated Glomerular Filt Rate 90 ml/min
[2022-08-07 09:25] VITALS: BP 127/86
[2022-08-07 12:00] VITALS: BP 125/83
--- NOTE | 2022-08-07 14:51 | PM.OBDSVD1 ---
DS: Providers Provider Time Seen by Provider: 14:51 Date Seen: 08/07/22 Date of admission: 08/05/22 07:16 Primary care physician: Not a Local Provider Admitting Clinician: Janeen uMñoz CNM Attending Physician on discharge: Janeen Muñoz CNM DS: Diagnosis Discharge Diagnosis (1) (normal spontaneous vaginal delivery): Status: Acute Problem details: Girl, Erika. (2) Second degree perineal laceration: Status: Acute (3) Severe preeclampsia: Status: Acute (4) Lactating mother: Status: Acute Exam Narrative: Exam Narrative: VSS, afebrile GENERAL APPEARANCE: ?normal affect, alert, no distress MOOD: ?appropriate HEENT: normocephalic, neck supple, full ROM CHEST: ?Symmetrical chest wall movement. ?Normal respiratory effort. ?Clear to auscultation HEART: ?regular rate and rhythm ABDOMEN: ?soft, non-tender. Uterine fundus is firm, at Umbilicus, Midline and is appropriate for the stage of recovery. ?Bowel sounds present. PERINEUM: ?mild edema of the perineum, there is a 2nd degree laceration that is healing well. EXTREMITIES: ?normal and +1 edema Const: Vital Signs, click to edit/add: Vital Signs - 24 hr 08/06/22 15:26 08/06/22 20:48 08/07/22 00:07 Temperature 97.8 F 98.0 F 98.3 F Pulse Rate [Pulse Oximeter] 86 82 82 Respiratory Rate 16 16 16 Blood Pressure [Le ft Arm] 128/84 124/83 118/80 Pulse Oximetry 97 97 97 Oxygen Delivery Me thod Room Air Room Air Room Air 08/07/22 03:35 08/07/22 07:15 08/07/22 09:25 Temperature 97.8 F 98.4 F Pulse Rate [Pulse Oximeter] 85 78 Respiratory Rate 16 18 Blood Pressure [Le ft Arm] 127/83 137/92 H 127/86 Pulse Oximetry 98 Oxygen Delivery Me thod Room Air Room Air 08/07/22 12:00 Temperature Pulse Rate [Pulse Oximeter] Respiratory Rate Blood Pressure [Le ft Arm] 125/83 Pulse Oximetry Oxygen Delivery Me thod OB - DS: Summary Hospital Course Hospital Course: Tammi is a 27 y.o. who was admitted to [facility] for IOL for preeclampsia. ?She had an uncomplicated NVD. she developed severe preeclampsia and was placed on magnesium sulfate. The patient feels well. ?The pain is well controlled with current medications. ?She has no new complaints. ?She is breast feeding and reports things are going well.? the patient has done well.? Vitals have become stable. She did have one elevated blood pressure this am, which resolved after she took the medication.? She has remained afebrile.? Has a good appetite, is tolerating a general diet. ?She is voiding without difficulty.? She is passing gas and has had a bowel movement.? She is ambulating and denies any dizziness.? Has Small amount of rubra lochia. ?She is undecided for prevention, but considering POP vs depo. Peripartum Data Infant delivery method: Vaginal Laceration description: Perineal - 2nd Degree complications: other (Severe preeclampsia, on magnesium sulfate) [place] Gender: Female Status at Discharge Functional status at discharge: independent ambulation Overall status at discharge: patient is progressing back to baseline Time Spent with Patient Time attestation: Total time spent providing and/or coordinating discharge services: Time spent: Less than 30 minutes Discharge Plan Discharge Disposition: Home, Self-Care Date of Admission: 08/05/22 07:16 Attending Provider on Discharge: Thuy Pal Primary Care Provider: Provider,Not a Local Condition: Stable Anticipated Discharge Date/Time: 08/07/22 13:26 Discharge Medications: New ibuprofen 600 mg Tablet 600 mg PO Q6H PRN (Reason: Pain) Qty: 60 0RF nifedipine 30 mg Tablet Extended Release 24hr 30 mg PO DAILY Qty: 30 1RF docusate sodium [Colace] 100 mg capsule 100 mg PO BID PRNQty: 100 0RF Rx Instructions: Take 1 cap 1-2 times as needed for constipation. Continued prenat.vits,domonique,[id number] Tablet 1 tab PO QDAY acetaminophen [Tylenol Extra Strength] 500 mg tablet 1,000 mg PO Q6H PRN calcium carbonate [Tums] 200 mg calcium (500 mg) tablet,chewable 200 mg PO TID PRN (DME) Blood Pressure Cuff Misc See Rx Instructions .Route Qty: 1 0RF Rx Instructions: As directed Discontinued aspirin [Adult Low Dose Aspirin] 81 mg tablet,delayed release (DR/EC) 81 mg PO QDAY triamcinolone acetonide 0.1 % cream 1 applic topical TID Qty: 30 2RF Discharge Orders: Discharge Order (Routine); Ordered 08/07/22 Ordered By: Thuy Pal Patient Education: Preeclampsia During (DC), OB Over the Counter Medication Information, OB Vaginal/Breast Feeding Additional Instructions: Discharge instructions were reviewed with the patient including signs and symptoms of infection and home going medications. ACTIVITY RESTRICTIONS: Off Work or School for 6 weeks. Nothing vaginally for 6 weeks: no tampons or intercourse Symptoms to report to doctor: -Bleeding that saturates more than one pad per hour ?-Passing clots larger than the size of a golf ball ?-Pain not relieved by prescribed medication ?-Fever above 100.4 degrees Fahrenheit ?-A foul vaginal odor ?-Difficulty in emotions, mood and functions ?-Thoughts of hurting yourself and/or ?-Painful, reddened area in your breast ?-Any drainage, redness or tenderness in your IV/epidural site ?-Severe headache that doesn't improve after taking medications ?-Changes in vision, including temporary loss of vision, blurred vision, and/or light sensitivity ?-Upper abdominal pain (usually under ribs on the right side) ?-Decrease in urination or painful, frequent urinating ?-Chest pain ?-Shortness of breath ?-Tenderness or pain with redness and/swelling in the calf(s) of your leg Follow Up with a [facility] provider: 1. Nurse visit 3-5 days after discharge for a BP check. 2. 2 week visit: Answer concerns for care, screen for anxiety/depression. 3. 6 week visit: Annual exam. 4. Continue to check BPs twice a day. Continue nifedipine as directed. consultation services are available to all mothers and babies for the first year after delivery.? To make an appointment, please call [phone]. Activity Level: Activity as Tolerated Discharge Diet: Regular Follow Up Appointments: [facility] [Provider Group] Provider,Not a Local [Primary Care Provider] - Forms: Info[employer] Info Instructions
[2022-08-07 15:00] VITALS: BP 126/83; PULSE 81; RESP 18; TEMP 36.6; O2SAT 96
== END 2022-08-07 16:00 | disposition home or self-care (01) | DRG 807 ==
PROVIDERS: Advanced Practice Midwife; Obstetrics & Gynecology; Admitting Provider Advanced Practice Midwife; Visit Provider Advanced Practice Midwife
DX: O14.14 Severe pre-eclampsia complicating childbirth (principal); Z37.0 Single live birth; O70.1 Second degree perineal laceration during delivery; Z3A.37 37 weeks gestation of pregnancy
CPT/HCPCS: 36415; 59200; 82565; 82570; 84156; 84450; 84460; 84520; 85025; 85027; 85384; 85610; 86850; 86900; 86901; 87635; 88307; A9270; J2001; J3475; J7120

== ENCOUNTER 2022-12-18 08:00 | Outpatient (RCR) | payer OTHER, SELFPAY | END 2023-04-17 23:59 | disposition home or self-care (01) | PROVIDERS: Visit Provider Advanced Practice Midwife | DX: Z39.2 Encounter for routine postpartum follow-up (principal); N81.89 Other female genital prolapse; R53.1 Weakness; R27.8 Other lack of coordination; R10.2 Pelvic and perineal pain; Z51.89 Encounter for other specified aftercare | CPT/HCPCS: 97110; 97112; 97140; 97162; 97535 ==

== ENCOUNTER 2024-03-22 15:09 | Outpatient (CLI) | payer OTHER, SELFPAY ==
[2024-03-22 18:32] LABS: Chlamydia DNA Amplified* NOT DETECTED (No Detected); GC DNA Amplified* NOT DETECTED (No Detected)
== END 2024-03-22 15:10 | disposition home or self-care (01) ==
PROVIDERS: Visit Provider Physician Assistant
DX: Z34.91 Encounter for supervision of normal pregnancy, unspecified, first trimester (principal); O20.9 Hemorrhage in early pregnancy, unspecified; Z3A.08 8 weeks gestation of pregnancy
CPT/HCPCS: 76817; 82565; 82570; 84156; 84450; 84460; 84520; 84550; 86592; 86703; 86704; 86706; 86762; 86787; 86803; 86850; 86900; 86901; 87086; 87340; 87491; 87591

== ENCOUNTER 2024-04-02 06:45 | Outpatient (CLI) | payer OTHER, SELFPAY | END 2024-04-02 06:46 | disposition home or self-care (01) | LOC: NFLDREF 04-03 17:42 | PROVIDERS: Visit Provider Physician Assistant | DX: O12.11 Gestational proteinuria, first trimester (principal); Z87.59 Personal history of other complications of pregnancy, childbirth and the puerperium; Z3A.11 11 weeks gestation of pregnancy | CPT/HCPCS: 82570; 84156 ==

== ENCOUNTER 2024-06-14 08:08 | Outpatient (CLI) | payer OTHER, SELFPAY ==
--- NOTE | 2024-06-14 08:15 | CRLHL7_ITS ---
For Patients: As a result of the Century Cures Act, medical imaging exams and procedure reports are released immediately into your electronic medical record. You may view this report before your referring provider. If you have questions, please contact your health care provider. INDICATION: survey TECHNIQUE: Conventional transabdominal two-dimensional grayscale ultrasound examination COMPARISON: 03/22/2024 FINDINGS: There is a living fetus with gestational age of 20 weeks 6 days by 1st trimester ultrasound dating and 21 weeks 3 days by today`s measurements. EDC based on 1st trimester ultrasound dating is 10/26/2024. BPD: 4.8 cm, 20 weeks 3 days Head circumference: 18.7 cm, 21 weeks Abdominal circumference: 17.8 cm, 22 weeks 4 days Femur length: 3.6 cm, 21 weeks 3 days HC/AC: 1.05 The weight is estimated at 462 grams. The heart rate is measured at 144 beats per minute and the rhythm appears regular. The head and spine are grossly intact. The face and heart are inadequately visualized due to lie. The heart and stomach appear to be on the same side. The diaphragm is intact. Two kidneys and a bladder are demonstrated. The cord insertion is normal and three cord vessels are noted. Four extremities are demonstrated. The amniotic fluid volume is within normal limits. The placenta is posterior with no evidence of previa. The cervical length is normal at 4.5 cm. IMPRESSION: 1. Living fetus with gestational age of 20 weeks 6 days by 1st trimester ultrasound dating and 21 weeks 3 days by today`s measurements. EDC based on 1st trimester ultrasound dating is 10/26/2024. 2. No anomaly evident. face and heart inadequately visualized due to lie. Limited follow up recommended. Dictated by Paul Evans MD @ 06/14/2024 1:23:27 PM (Electronically Signed)
== END 2024-06-14 08:09 | disposition home or self-care (01) ==
LOC: US 08:09
PROVIDERS: Visit Provider Midwife
DX: Z34.92 Encounter for supervision of normal pregnancy, unspecified, second trimester (principal); Z3A.20 20 weeks gestation of pregnancy
CPT/HCPCS: 76805

== ENCOUNTER 2024-06-22 10:51 | Outpatient (CLI) | payer OTHER, SELFPAY | END 2024-06-22 10:52 | disposition home or self-care (01) | LOC: NFLDREF 06-23 06:42 | PROVIDERS: Visit Provider Internal Medicine Nephrology | DX: O12.12 Gestational proteinuria, second trimester (principal); Z3A.20 20 weeks gestation of pregnancy | CPT/HCPCS: 82570; 84156 ==

== ENCOUNTER 2024-06-29 10:33 | Outpatient (CLI) | payer OTHER, SELFPAY | END 2024-06-29 10:34 | disposition home or self-care (01) | LOC: NFLDREF 06-30 02:28 | PROVIDERS: Visit Provider Internal Medicine Nephrology | DX: O12.11 Gestational proteinuria, first trimester (principal) | CPT/HCPCS: 87086 ==

== ENCOUNTER 2024-07-12 09:03 | Outpatient (CLI) | payer OTHER, SELFPAY ==
--- NOTE | 2024-07-12 09:15 | CRLHL7_ITS ---
For Patients: As a result of the Century Cures Act, medical imaging exams and procedure reports are released immediately into your electronic medical record. You may view this report before your referring provider. If you have questions, please contact your health care provider. LMP: 01/24/2024. TYESHA by LMP: 10/30/2024. GA: 24w, 2d. COMPARISON: 06/14/2024. Single. INDICATION: Follow-up on missed anatomy, profile and heart views. CERVIX: Not visualized. POSITIONING: Breech. AMNIOTIC FLUID: 4.6 cm SDP. PLACENTA: Technique: Transabdominal. PLACENTA POSITION: Posterior. DOPPLER: heart rate: 139 bpm. SURVEY: Observed Structures Nasal bone: Yes. Four-Chamber Heart: Yes. LVOT: Yes. RVOT: Yes. COMMENT: Four-chamber heart is visualized and within normal limits. However, there is an echogenic focus in the left ventricle. The outflow tracts are visualized and within normal limits. Nasal bone visualized and within normal limits. IMPRESSION: 1. Single live intrauterine gestation. 2. Four-chamber heart demonstrated that appears within normal limits aside from echogenic focus in the left ventricle. 3. Outflow tracts are visualized and within normal limits. 4. Nasal bone is visualized and within normal limits. Annetta Richardson M.D. Diagnostic/Breast Radiologist [email or web address] ROSA/yancy / bM/Dictated by: Annetta Richardson MD @ 07/12/2024 6:08:00 PM (Electronically Signed)
== END 2024-07-12 09:04 | disposition home or self-care (01) ==
LOC: US 09:04
PROVIDERS: Visit Provider Advanced Practice Midwife
DX: Z34.92 Encounter for supervision of normal pregnancy, unspecified, second trimester (principal); Z3A.24 24 weeks gestation of pregnancy
CPT/HCPCS: 76816

== ENCOUNTER 2024-08-09 09:30 | Outpatient (CLI) | payer OTHER, SELFPAY | END 2024-08-09 09:31 | disposition home or self-care (01) | LOC: NFLDREF 08-13 02:04 | PROVIDERS: Visit Provider Advanced Practice Midwife | DX: Z34.83 Encounter for supervision of other normal pregnancy, third trimester (principal) | CPT/HCPCS: 86592 ==

== ENCOUNTER 2024-09-07 09:52 | Outpatient (CLI) | payer OTHER, SELFPAY | END 2024-09-07 09:53 | disposition home or self-care (01) | LOC: NFLDREF 09-10 08:21 | PROVIDERS: Visit Provider Internal Medicine Nephrology | DX: O12.13 Gestational proteinuria, third trimester (principal); Z3A.32 32 weeks gestation of pregnancy | CPT/HCPCS: 82570; 84156 ==

== ENCOUNTER 2024-09-10 09:13 | Outpatient (CLI) | payer OTHER, SELFPAY | END 2024-09-10 09:14 | disposition home or self-care (01) | LOC: NFLDREF 09-14 17:28 | PROVIDERS: Visit Provider Internal Medicine Nephrology | DX: O12.11 Gestational proteinuria, first trimester (principal) | CPT/HCPCS: 82570; 84156 ==

== ENCOUNTER 2024-10-04 09:45 | Outpatient (CLI) | payer OTHER, SELFPAY | END 2024-10-04 09:46 | disposition home or self-care (01) | LOC: NFLDREF 10-12 16:17 | PROVIDERS: Visit Provider Advanced Practice Midwife | DX: Z34.93 Encounter for supervision of normal pregnancy, unspecified, third trimester (principal); Z3A.36 36 weeks gestation of pregnancy | CPT/HCPCS: 87081; 87653 ==

== ENCOUNTER 2024-10-07 15:27 | Outpatient (CLI) | payer OTHER, SELFPAY ==
[2024-10-07] VITALS (17 sets, daily range): BP systolic 130–161; BP diastolic 79–97; PULSE 82–97; RESP 16; TEMP 36.7; O2SAT 98
[2024-10-07 16:33] LABS: Hematocrit 36.2 % (33.0-51.0); Mean Corpuscular HGB Conc 33 gm/dL (32-36); Mean Corpuscular Hemoglobin 29 pg (26-34); Mean Corpuscular Volume 87 fL (80-100); Platelet Count* 251 K/uL (140-440); Red Blood Count 4.15 m/uL (4.00-5.20); White Blood Count* 10.28 K/uL (4.50-11.00)
[2024-10-07 16:34] LABS: Slide Review Reflex No
[2024-10-07 16:45] LABS: Alanine Aminotransferase* 15 U/L (4-35); Aspartate Amino Transferase* 27 U/L (12-35); Blood Urea Nitrogen* 12 mg/dL (5-24); Creatinine* 0.8 mg/dL (0.5-1.5); Estimated Glomerular Filt Rate 103 ml/min
[2024-10-07 16:48] LABS: Total Protein Urine 48 mg/dL
[2024-10-07 16:49] LABS: Creatinine Urine 63.8 mg/dL; Protein Creatinine Ratio Urine 0.75 (0-0.19)
--- NOTE | 2024-10-07 19:19 | PM.OBLDTN ---
OB - Triage/Final Diagnosis Visit Information Narrative: Tammi is a at 36 5/7 weeks gestation that presented to triage following elevated blood pressure readings at home. She reports she had a 149/97 but on repeat was normal. She then checked again this afternoon and it was 152/94. She has had 130/80-90's at home in the last week but it has not been elevated yet in clinic. She was strongly encouraged to come in for further evaluation if her BP was elevated at home and remained elevated. She denies any headache, visual changes, or epigastric pain today. She endorses movement and denies any LOF or bleeding. Initial BP on arrival to triage was 154/95. Of note, patient has known protienuria. Her baseline 24 hour was 0.47, she would need to double this to meet criteria for Pre-eclampsia. Patient strongly desires to avoid severe pre-e and magnesium. Patient did have one severe range while in triage, this was possibly provoked by FOB who contacted her at the time and demanded she tell him if she was in labor. Repeat was still mild range but improved. I would not include this in criteria for severe range. Her is otherwise complicated by history of severe pre-e, obesity, and echogenic foci seen on anatomy US noted resolved since. OB PROBLEM LIST # history of severe preeclampsia Aspirin 81 mg starting at 12 weeks Baseline preeclampsia labs: all with exception of pr/cr ratio: 0.36 #Proteinuria 24 hr urine for protein 04/02/2024: 624mg or 0.47 Nephrology referral: Completed at [facility] with Nephrology Outreach on 04/13/2024 Baseline 24 hour urine protein: 600 mg Follow-up with Nephrology in Jun 2024, repeat 24 hour urine and urinalysis: Protein was down, follow-up again in August Plans to continue to follow-up with . Recommended f/u 3 months PP. p/c ratio 09/07 1.36. Seen Nephrology on 09/14, 24 hour p/c ratio was 0.42 or 526 mg (stable) # obesity, BMI 35.1 Hemoglobin A1c:4.8% Consider testing starting at 37 weeks # Echogenic foci on anatomy US, RESOLVED MFM referral: completed 07/27, no echogenic foci seen by MFM Declined aneuploidy screening Reason for evaluation: other Evaluation Laboratory results: Laboratory Tests 10/07/24 10/07/24 Range/Units 16:08 16:05 WBC 10.28 (4.50-11.00) K/uL RBC 4.15 (4.00-5.20) m/uL Hgb 12.0 (12.0-16.0) gm/dL Hct 36.2 (33.0-51.0) % MCV 87 (80-100) fL MCH 29 (26-34) pg MCHC 33 (32-36) gm/dL Plt Count 251 (140-440) K/uL BUN 12 (5-24) mg/dL Creatinine 0.8 (0.5-1.5) mg/dL Estimated GFR 103 ml/min AST 27 (12-35) U/L ALT 15 (4-35) U/L Urine Creatinine 63.8 mg/dL Protein/Creatinin Ratio 0.75 H (0-0.19) Urine Total Protein 48 mg/dL Vital signs: Vital Signs - 24 hr 10/07/24 15:35 10/07/24 15:53 10/07/24 15:57 Temperature 98.1 F Pulse Rate 92 Respiratory Rate 16 Blood Pressure 154/95 H Pulse Oximetry 98 10/07/24 16:12 10/07/24 16:26 10/07/24 16:41 Temperature Pulse Rate 91 85 96 Respiratory Rate Blood Pressure 133/96 H 130/93 H 136/96 H Pulse Oximetry 10/07/24 16:56 10/07/24 17:11 10/07/24 17:26 Temperature Pulse Rate 95 91 88 Respiratory Rate Blood Pressure 161/91 H 150/94 H 153/96 H Pulse Oximetry 10/07/24 17:42 10/07/24 17:56 10/07/24 18:12 Temperature Pulse Rate 89 88 87 Respiratory Rate Blood Pressure 146/97 H 140/93 H 139/79 Pulse Oximetry 10/07/24 18:26 10/07/24 18:42 10/07/24 18:56 Temperature Pulse Rate 93 82 91 Respiratory Rate Blood Pressure 139/79 139/88 134/90 H Pulse Oximetry 10/07/24 19:11 Temperature Pulse Rate 90 Respiratory Rate Blood Pressure 144/93 H Pulse Oximetry Fetus (Single) Heart Rate Baseline: 130 Roll Up Guider Operator Variability: Moderate (6-25) Monitor Accelerations: Present Monitor Decelerations: None Final Diagnosis (1) Gestational hypertension: Status: Acute (2) Proteinuria affecting , antepartum: Status: Acute (3) Situational anxiety: Status: Acute Total Time Spent Total Time Spent: ASSESSMENT:? 29 yo at 36.5 weeks gestation? complicated by:?newly diagnosed GHTN, hx of severe pre-e, obesity, and echogenic foci seen on anatomy US noted resolved since. Newly diagnosed GHTN IOL scheduled 10/09/2024 ? PLAN:? Monitor BP x 4 hours in triage. At 4 hours, she has met criteria for GHTN. Labs are WNL, p/c ratio is 0.75. IOL consent reviewed and signed. Patient to return 10/09 for medical IOL. Continue to monitor BP at home. Return with elevated BP in severe range of 160/110 or severe symptoms of pre-e including headache, blurred vision, or epigastric pain. Dr. Goss aware of plan and agrees. Pt strongly desires FOB to not be aware she is here. RN notified security and plan was made with patient for safety. Discharge to home with [place].
--- NOTE | 2024-10-07 19:53 | PC.OBNST ---
NST Note NST Note Start: 10/07/24 15:31 Freq: ONCE Status: Active Protocol: Document 10/07/24 19:50 PETER (Rec: 10/07/24 19:52 PETER Santana) NST Note 2 Para (# of births) 1 EDC 10/30/24 Gestational Age In Weeks & Days 36 Weeks & 5 Days High Risk Factors High Blood Pressure - Gestational Patient Presented with Complaint(s) of Other Other Complaints Elevated BP's at home. Pt discharged home and will return 10/09 for IOL for GHTN. Reactive Yes Appropriate for Gestational Age Yes RN Miryam Araujo RN Date 10/07/24 Reactive Yes Appropriate for Gestational Age Yes AKIRA Du RN Date 10/07/24 OB NST charge Yes Complete NST Note via Write Note Yes The provider's electronic signature indicates the NST is reactive/appropriate for gestational age. *Note to provider: If an addendum is required, open the patient's chart and click on the note under the Nurse/Allied Health tab.
== END 2024-10-07 19:40 | disposition home or self-care (01) ==
LOC: OB OUT 15:28 → OB 15:29
PROVIDERS: Visit Provider Advanced Practice Midwife
DX: O13.3 Gestational [pregnancy-induced] hypertension without significant proteinuria, third trimester (principal); Z3A.36 36 weeks gestation of pregnancy
CPT/HCPCS: 36415; 59025; 82565; 82570; 84156; 84450; 84460; 84520; 85027; G0463

== ENCOUNTER 2024-10-09 07:27 | Inpatient (IN) | payer OTHER, SELFPAY ==
[2024-10-09] VITALS (46 sets, daily range): BP systolic 137–183; BP diastolic 66–112; PULSE 73–160; RESP 16–20; TEMP 36.3–36.9; O2SAT 91–100; BMI 35.4
--- NOTE | 2024-10-09 08:15 | P.LDBA_ITS ---
Subjective History of Present Illness Narrative: Patient is being admitted to Labor and Delivery for []. She is a 29 year old at weeks gestation. Her full history and physical was dictated by [] on []. Please see this for details. [] Specific Issues/Plans Partner: Keo (currently getting divorce, see 08/09 note) It is a boy! Daughter-Samoset/Booger/Monster She does not want Keo at the hospital at all for her or . H&P: [] # history of severe preeclampsia Aspirin 81 mg starting at 12 weeks Baseline preeclampsia labs: all with exception of pr/cr ratio: 0.36 24 hr urine for protein 04/02/2024: 624mg or 0.47 Nephrology referral: Completed at [facility] with Nephrology Outreach on 04/13/2024 Baseline 24 hour urine protein: 600 mg Follow-up with Nephrology in Jun 2024, repeat 24 hour urine and urinalysis: Protein was down, follow-up again in August Plans to continue to follow-up with . Recommended f/u 3 months PP. p/c ratio 09/07 1.36. Seen Nephrology on 09/14, 24 hour p/c ratio was 0.42 or 526 mg (stable) # obesity, BMI 35.1 Hemoglobin A1c:4.8% Consider testing starting at 37 weeks # Echogenic foci on anatomy US, RESOLVED MFM referral: completed 07/27, no echogenic foci seen by MFM Declined aneuploidy screening Imaging: First tri US-03/22/2024: 1. Living IUP with gestational age of 8 weeks 6 days by today`s crown-rump length and EDC of 10/26/2024.2. Subchorionic hemorrhages measuring 1.9 x 1.4 x 0.4 cm and 1.2 x 1.0 x 0.8 cm. Anatomy US-06/14/24-. Living fetus with gestational age of 20 weeks 6 days by 1st trimester ultrasound dating and 21 weeks 3 days by today`s measurements. EDC based on 1st trimester ultrasound dating is 10/26/2024. 2. No anomaly evident. face and heart inadequately visualized due to lie. Limited follow up recommended. F/U US- 07/12/24-Single live intrauterine gestation. 2.Four-chamber heart demonstrated that appears within normal limits aside from echogenic focus in the left ventricle.3.Outflow tracts are visualized and within normal limits. 4.Nasal bone is visualized and within normal limits. MFM US Level 07/27/2024. SIUP, no anomalies detected and echogenic focus is not seen, EFW 67%, amniotic fluid normal, cervix is long and closed. Vaccinations: COVID: Declined Flu: Declined Tdap: 08/23/2024 RSV: N/A 32 week mental health: [] Last pap: 09/18/2022, NIL/-HPV Comments: Assessment:??G[ ] P[ ] at [ ] weeks gestation?? GBS [negative/positive]? Patient is coping [] with challenges of labor.?? Labor type: [Induced/Spontaneous], [Early/Active] labor? Category [1, 2, 3] FHR pattern.? complicated by: [] Plan:?? * ?Admit to L & D? * IV access: * Monitoring per policy: [continuous or intermittent]? * Candidate for analgesia of choice.? Planning [] for pain management * [Desires waterbirth.? Consent signed and Hep C negative] * [Expectant management at this time] [Reviewed risks and benefits of IOL with Cook balloon, Pitocin vs Cytotec/Cervidil. Pt prefers Cytotec. Pitocin to follow if needed.] * [GBS prophylaxis initiated for GBS positive status. Will treat with antibiotics per protocol.] * [Monitor blood pressures. Consider labs if continue to be elevated.]? * Patient encouraged to reposition and ambulate to promote physiologic labor and . * Anticipate ? OB Exam Physical Exam Vital signs: Temp Pulse Resp BP Pulse Ox 98.2 F 99 18 143/91 H 99 10/09/24 08:05 10/09/24 07:47 10/09/24 08:05 10/09/24 07:47 10/09/24 07:50 Detailed Labor and Delivery Exam Patient Gravid: Yes
--- NOTE | 2024-10-09 08:16 | P.OBHP_ITS ---
OB - H&P: HPI Labor/Induction History of Present Illness Date Seen: 10/09/24 Chief Complaint: Tammi is a 29 year old 2 para 1 at 37.0 weeks gestation by LMP, who presents for induction of labor due to gestational hypertension. Chief complaint: Maternity : 2 Para: 1 Date of last menstrual period: 01/24/24 Estimated date of delivery: 10/30/24 Gestational age based on last menstrual period: 37 Indications for induction: maternal hypertension Narrative: Tammi Sun is a 29 year old female OB H&P Gestational age: 37 weeks 0/7 days??? Patient's care began at 8 and 2/7 weeks gestation.? She is dated by first trimester US consistent with LMP.? EDC is 10/30/24.? She has had routine visits since that time.? Current BMI: 35.4 IMAGING:??? 1st trimester: 1. Living IUP with gestational age of 8 weeks 6 days by today`s crown-rump length and EDC of 10/26/2024. 2. Subchorionic hemorrhages measuring 1.9 x 1.4 x 0.4 cm and 1.2 x 1.0 x 0.8 cm. ?? Anatomy scan:? 1. Living fetus with gestational age of 20 weeks 6 days by 1st trimester ultrasound dating and 21 weeks 3 days by today`s measurements. EDC based on 1st trimester ultrasound dating is 10/26/2024. 2. No anomaly evident. face and heart inadequately visualized due to lie. Limited follow up recommended. Follow up: ?1.Single live intrauterine gestation. 2.Four-chamber heart demonstrated that appears within normal limits aside from echogenic focus in the left ventricle. 3.Outflow tracts are visualized and within normal limits. 4.Nasal bone is visualized and within normal limits. ? Others: MFM visit- Single IUP at 26.3 weeks, no anomalies seen, no echogenic foci seen, growth parameters and EFW consistent with gestational age, amniotic fluid level is normal. Specific Issues/Plans Partner: Keo (currently getting divorce, see 08/09 note) It is a boy! Daughter-Erika/Booger/Monster She does not want Keo at the hospital at all for her or . H&P: [] # history of severe preeclampsia Aspirin 81 mg starting at 12 weeks Baseline preeclampsia labs: all with exception of pr/cr ratio: 0.36 24 hr urine for protein 04/02/2024: 624mg or 0.47 Nephrology referral: Completed at [facility] with Nephrology Outreach on 04/13/2024 Baseline 24 hour urine protein: 600 mg Follow-up with Nephrology in Jun 2024, repeat 24 hour urine and urinalysis: Protein was down, follow-up again in August Plans to continue to follow-up with . Recommended f/u 3 months PP. p/c ratio 09/07 1.36. Seen Nephrology on 09/14, 24 hour p/c ratio was 0.42 or 526 mg (stable) # obesity, BMI 35.1 Hemoglobin A1c:4.8% Consider testing starting at 37 weeks # Echogenic foci on anatomy US, RESOLVED MFM referral: completed 07/27, no echogenic foci seen by MFM Declined aneuploidy screening Imaging: First tri US-03/22/2024: 1. Living IUP with gestational age of 8 weeks 6 days by today`s crown-rump length and EDC of 10/26/2024.2. Subchorionic hemorrhages measuring 1.9 x 1.4 x 0.4 cm and 1.2 x 1.0 x 0.8 cm. Anatomy US-06/14/24-. Living fetus with gestational age of 20 weeks 6 days by 1st trimester ultrasound dating and 21 weeks 3 days by today`s measurements. EDC based on 1st trimester ultrasound dating is 10/26/2024. 2. No anomaly evident. face and heart inadequately visualized due to lie. Limited follow up recommended. F/U US- 07/12/24-Single live intrauterine gestation. 2.Four-chamber heart demonstrated that appears within normal limits aside from echogenic focus in the left ventricle.3.Outflow tracts are visualized and within normal limits. 4.Nasal bone is visualized and within normal limits. MFM US Level 07/27/2024. SIUP, no anomalies detected and echogenic focus is not seen, EFW 67%, amniotic fluid normal, cervix is long and closed. Vaccinations: COVID: Declined Flu: Declined Tdap: 08/23/2024 RSV: N/A 32 week mental health: [] Last pap: 09/18/2022, NIL/-HPV History of Present Dating criteria: based on LMP care: good care Ultrasounds: normal 1st trimester US, abnormal US findings and other Abnormal ultrasound findings: echogenic foci on anatomy scan, not seen with MFM follow up complications: gestational hypertension Medical complications: none Review of Systems Status of ROS: Reports: 10 or more systems reviewed and unremarkable except as noted in History and below Meds Home Medications and Allergies Home Medications ?Medication ?Instructions ?Recorded ?Confirmed ?Type prenat.vits,domonique,[id number] 1 tab PO QDAY 01/16/22 10/07/24 History miscellaneous medical supply #1 ea 07/12/22 10/04/24 Rx (Blood Pressure Cuff) triamcinolone acetonide 0.025 % 1 applic topical QDAY PRN 03/22/24 10/07/24 History topical cream aspirin 81 mg tablet,delayed 81 mg PO QDAY 05/22/24 10/07/24 History release (Adult Aspirin Regimen) hydroxyzine HCl 25 mg tablet 25 mg PO TID PRN anxiety #30 tabs 08/23/24 10/07/24 Rx Allergies Allergy/AdvReac Type Severity Reaction Status Date / Time No Known Drug Allergies Allergy Verified 10/04/24 08:29 OB - H&P: Exam Physical Exam: Vital signs: Temp Pulse Resp BP Pulse Ox 98.2 F 99 18 143/91 H 99 10/09/24 08:05 10/09/24 07:47 10/09/24 08:05 10/09/24 07:47 10/09/24 07:50 Narrative: VSS? General Appearance:? Alert,?appropriate appearance?for age. No acute distress? HEENT Exam:? Grossly?normal.? Neck / Thyroid Exam:? Supple? Chest/Respiratory Exam: Normal respiratory effort, symmetrical chest wall rise. Clear to auscultation.? Cardiovascular Exam: Regular rate and rhythm. S1, S2, no murmur, click, gallop, or rubs.? Gastrointestinal Exam: non-tender,? Gravid??? Musculoskeletal Exam: Back is straight and non-tender, full ROM of upper and lower extremities.? Skin: no rash or abnormalities? Neurologic Exam: Normal gait and speech, no tremor.? Psychiatric Exam: Alert and oriented, appropriate affect.??? Detailed Labor and Delivery Exam: Patient Gravid: Yes OB - Problem Based A/P Additional Plan (1) Gestational hypertension: Status: Acute (2) Proteinuria affecting , antepartum: Status: Acute (3) BMI 35.0-35.9,adult: Status: Acute Plan Assessment:?? at 37.0 weeks gestation?? GBS negative?? Labor type: Induced, not in labor? Category 1 FHR pattern.? complicated by: # Gestational hypertension dx 10/07/24 # history of severe preeclampsia #proteinuria in Baseline preeclampsia labs: all with exception of pr/cr ratio: 0.36 24 hr urine for protein 04/02/2024: 624mg or 0.47 Nephrology referral: Completed at [facility] with Nephrology Outreach on 04/13/2024 Baseline 24 hour urine protein: 600 mg Follow-up with Nephrology in Jun 2024, repeat 24 hour urine and u rinalysis: Protein was down, follow-up again in August Plans to continue to follow-up with . Recommended f/u 3 months PP. p/c ratio 09/07 1.36. Seen Nephrology on 09/14, 24 hour p/c ratio was 0.42 or 526 mg (stable) # obesity, BMI 35.1 Hemoglobin A1c:4.8% # Echogenic foci on anatomy US, RESOLVED Plan:?? * ?Admit to L & D? * IV access: pt declines at this time, if BP is elevated in severe range will agree to placement * Monitoring per policy: continuous ? * Candidate for analgesia of choice.? Planning unmedicated for pain management * Desires waterbirth.? Consent signed and Hep C negative * Reviewed risks and benefits of IOL with Cook balloon, Pitocin vs Cytotec/Cervidil. Pt prefers Cytotec. Pitocin to follow if needed. * Baseline preeclampsia labs today, has had elevated protein in urine since start of , followed by Nephrology. ? * Patient encouraged to reposition and ambulate to promote physiologic labor and . * Anticipate ? Delivery/Labor/Induction Plan Plan: induction Induction method: per misoprostol protocol
[2024-10-09] MEDS: miSOPROStoL 25 MCG/0.25 TABLET VAGINAL ×2 (08:26→11:56)
[2024-10-09 08:55] LABS: Hematocrit 34.6 % (33.0-51.0); Hemoglobin* 11.4 gm/dL (12.0-16.0); Mean Corpuscular HGB Conc 33 gm/dL (32-36); Mean Corpuscular Hemoglobin 29 pg (26-34); Mean Corpuscular Volume 87 fL (80-100); Platelet Count* 220 K/uL (140-440); White Blood Count* 8.37 K/uL (4.50-11.00)
[2024-10-09 08:56] LABS: Slide Review Reflex No
[2024-10-09 09:14] LABS: Alanine Aminotransferase* 18 U/L (4-35); Aspartate Amino Transferase* 29 U/L (12-35); Creatinine* 0.8 mg/dL (0.5-1.5); Est. Creatinine Clearance* 86.61; Estimated Glomerular Filt Rate 103 ml/min
[2024-10-09 09:16] LABS: Total Protein Urine 49 mg/dL
[2024-10-09 09:17] LABS: Creatinine Urine 104.8 mg/dL; Protein Creatinine Ratio Urine 0.47 (0-0.19)
--- NOTE | 2024-10-09 12:04 | PM.OBPNL ---
Subjective Date Seen: 10/10/24 Objective Vital Signs: Last Vital Signs Temp 98.2 F 10/09/24 10:32 Pulse 93 10/09/24 11:49 Resp 20 10/09/24 10:32 BP 154/97 H 10/09/24 11:49 Pulse Ox 98 10/09/24 10:31
--- NOTE | 2024-10-09 12:12 | PM.OBPNL ---
Subjective Date Seen: 10/09/24 Narrative: ?Tammi is coping well with labor pain/contractions. ?Her dad is with her for support. ?She is using nothing at this time for comfort and pain management.?Her blood pressures have been elevated in severe range over 160/110 twice, recheck after each severe range elevations were then less than 160/110 but have been trending upwards, 148/99 and 154/97 on repeat. Discussed starting oral Nifedipine 30mg now after discussion with chief environmental commitment officer OB. At this time Dr. Parra is comfortable with her attempting a waterbirth despite oral treatment of blood pressures. If concerns with FHR or blood pressures require starting Magnesium IV she will then risk out of waterbirth. Pt greatly desires waterbirth and is agreeable to this plan. Recommended she have an IV placed at this time and she agreed to placement. Objective Exam: VSS, afebrile General Appearance:? Calm, cooperative. ?No acute distress. ? Psychiatric Exam: Alert and oriented, appropriate affect Abdomen: Gravid Ctx: ?Q 3-5 min apart. ?Mild ? ? FHTs: ?Baseline: 150. ? ? Variability: moderate. ?Accels: +. ? ?Decels: ?-. SVE: deferred Membranes: Intact ? Vital Signs: Last Vital Signs Temp 98.2 F 10/09/24 10:32 Pulse 93 10/09/24 11:49 Resp 20 10/09/24 10:32 BP 154/97 H 10/09/24 11:49 Pulse Ox 98 10/09/24 10:31 Plan Plan: Assessment:?? at 37.0 weeks gestation?? GBS negative Patient is coping well with challenges of labor.?? Labor type: Induced, Early labor? Category 1 FHR pattern.? complicated by: # Gestational hypertension dx 10/07/24 # history of severe preeclampsia #proteinuria in Baseline preeclampsia labs: all with exception of pr/cr ratio: 0.36 24 hr urine for protein 04/02/2024: 624mg or 0.47 Nephrology referral: Completed at [facility] with Nephrology Outreach on 04/13/2024 Baseline 24 hour urine protein: 600 mg Follow-up with Nephrology in Jun 2024, repeat 24 hour urine and urinalysis: Protein was down, follow-up again in August Plans to continue to follow-up with . Recommended f/u 3 months PP. p/c ratio 09/07 1.36. Seen Nephrology on 09/14, 24 hour p/c ratio was 0.42 or 526 mg (stable) # obesity, BMI 35.1 # Echogenic foci on anatomy US, RESOLVED Labor complicated by: increasing blood pressures not yet severe ? Plan:?? Start oral Nifedipine 30mg now Continue with Cytotec per protocol for induction of labor Continue with routine intrapartum cares as ordered.?? Patient encouraged to move and change positions to promote physiologic labor and .?? Nonpharmacologic comfort measures per patient preference. Candidate for analgesia of choice if desired. Patient planning waterbirth, if concerns with FHR or severe range BP requiring IV treatment will risk out Anticipate progress to NVD. ?
[2024-10-09] MEDS: NIFEdipine ER 30 MG TAB PO (12:23)
[2024-10-09] MEDS: SODIUM CHLORIDE 0.9 % (FLUSH) 10 ML SYRINGE IVF (15:26)
--- NOTE | 2024-10-09 16:21 | PM.OBPNL ---
Subjective Date Seen: 10/09/24 Narrative: ?Tammi is coping well with labor pain/contractions. ?Her dad Solis is with her for support. ?She is using repositioning and relaxation for comfort and pain management.?She reports more frequent contractions but they are not more intense. Reviewed options for induction at this time, recommend we move to IV Pitocin as we are unable to give another dose of Cytotec due to more frequent contractions. R/B/A reviewed, questions answered and she is agreeable to starting this not. Objective Exam: VSS, afebrile General Appearance:? Calm, cooperative. ?No acute distress. ? Psychiatric Exam: Alert and oriented, appropriate affect Abdomen: Gravid Ctx: ?Q 1-3 min apart. ?Mild ? ? FHTs: ?Baseline: 150. ? ? Variability: moderate. ?Accels: +. ? ?Decels: ?-. SVE: deferred Membranes: Intact ? Vital Signs: Last Vital Signs Temp 98.2 F 10/09/24 12:50 Pulse 96 10/09/24 15:36 Resp 18 10/09/24 12:50 BP 138/83 10/09/24 15:36 Pulse Ox 98 10/09/24 15:44 Assessment Assessment: induction ongoing Plan Plan: Assessment:?? at 37.0 weeks gestation?? GBS negative Patient is coping well with challenges of labor.?? Labor type: Induced, Early labor? Category 1 FHR pattern.? complicated by: Gestational hypertension dx 10/07/24, history of severe preeclampsia. proteinuria in seeing Nephrology, obesity, BMI 35.1 Labor complicated by: none? Plan:?? Start IV Pitocin per protocol Continue with routine intrapartum cares as ordered.?? Patient encouraged to move and change positions to promote physiologic labor and .?? Nonpharmacologic comfort measures per patient preference. Candidate for analgesia of choice if desired. Patient planning waterbirth Anticipate progress to NVD. ?
[2024-10-09] MEDS: LACTATED RINGERS 1000 ML 1,000 ML 125 ML IV (16:41)
[2024-10-09] MEDS: OXYTOCIN 30 unit/500 ML in NS 30 UNIT/500 ML BAG IVPB (16:42)
[2024-10-09] MEDS: ACETAMINOPHEN 500 MG TABLET 1000 MG PO (16:49)
[2024-10-09] MEDS: fentaNYL 100 MCG/2 ML inj IVP (20:58)
[2024-10-09] MEDS: MAGNESIUM IV 4 GM/100 ML PIGGYBACK IVPB (21:07)
[2024-10-09] MEDS: LABETALOL HCL 5 MG/ML inj IVP ×2 (21:27→22:04)
--- NOTE | 2024-10-09 21:43 | W.PM.OBVAGDE ---
OB Procedure Vag Delivery Mother Details Mother Details: Tammi is a 29 year-old, 2, Para 1, admitted on 10/09/24 at 37.0 weeks gestation for induction of labor due to gestational hypertension. : 2 Para: 2 Weeks Gestation: 37.0 Admission Date: 10/09/24 Additional Details Amniotic Membrane Status: SROM Amniotic Membrane Rupture Date: 10/09/24 Amniotic Membrane Rupture Time: 21:11 Amniotic Membrane Fluid Description: Clear Analgesia/Anesthesia Type: Nitrous Oxide Waterbirth: No Pitcoin: Yes Intrapartal Events: Labor Induction Induction Method: per misoprostol protocol and per pitocin protocol Labor Onset: 18:00 Complete: 21:11 Pushin:12 Heart: heart tones during second stage were continuously monitored, although difficult to keep on the monitor and FHR was traced in the 90's. A FSE was placed and FHR then in the 70's she was coached to push and was able to deliver with the next contraction. Delivery Details Delivery Date: 10/09/24 Delivery Time: 21:16 Route of delivery: Infant Gender: Male Viability: Alive; Heart Rate Present Position at Delivery: OA Delivery Details: 29?y.o?at 37.0 weeks.? Tammi was admitted today for induction of labor due to gestational hypertension. She received 2 doses of vaginal Cytotec then was started on IV Pitocin. She strongly desired a waterbirth so when contractions became?strong she entered the tub, shortly after she requested Nitrous and was using that throughout the rest of her labor for pain. She was coping well in the tub but then began to have severe range blood pressures and had to get out and go to the bed so she could be started on IV Magnesium. Dr. Parra was notified of her blood pressure readings and the need for treatment, she is now managing her for severe preeclampsia and CNM continued to manage labor. She was requesting IV pain medication so a cervical exam was done and she was 7/100/0. Reviewed with the patient that she can have the medication but there is a risk her would need resuscitation at the time of delivery. She still wanted to have a dose of medication and was given 50mcg of Fentanyl. Approximately 10 minutes later her water broke spontaneously and she began to feel like pushing. The FHR dropped to the 90's so a FSE was placed and FHR then noted in the 70's. She was instructed to start pushing and delivered with the next contraction. ? She became complete at 2110.??She pushed in left tilt positions effectively.? Spontaneous vaginal delivery at 2115 of?a viable?male infant.??Delivered in vertex OA position.??Shoulders delivered easily once infant restituted.? Spontaneous cry noted.??Infant placed on maternal abdomen.??Cord?was clamped and cut immediately and handed to RN for evaluation.? Shoulder dystocia: no? Nuchal cord: no? Meconium stained?fluid: no? Water : no? ? ? 6 at 1 minute and 8 at 5 minutes.? Weight is pending. ? Placenta delivered spontaneously and?complete?at 2125 with a?3 vessel?cord.?? Bleeding controlled with fundal massage and?pitocin?for AMTSL.? ? Lacerations:? ?1st degree laceration, not bleeding, not repaired with shared decision making? ? Bleeding?post delivery?was: minimal. ?The fundus was firm to palpation.? Blood loss: 100?mL.? Blood loss measurement type: QBL? ? ? Sponge,?lap?and needles counts are correct.? Mother and infant were stable after delivery.? 1 Minute Interval Total Score: 6 5 Minute Interval Total Score: 8 Additional Details Shoulder Dystocia: No Placenta Delivery Time: 21:26 Placental Delivery Description: Spontaneous Procedure Done: Global Blood Loss: 100 Laceration: Perineal - 1st Degree Blood Loss Measurement Type: QBL Bakri Used: No Sponge/Need Count Correct: Yes Cord Vessel Description: 3 Vessels Event Summary Status: Mother and were stable after delivery. Disposition: floor
[2024-10-09 21:46] LABS: Hematocrit 36.3 % (33.0-51.0); Mean Corpuscular HGB Conc 33 gm/dL (32-36); Mean Corpuscular Hemoglobin 29 pg (26-34); Mean Corpuscular Volume 86 fL (80-100); Platelet Count* 260 K/uL (140-440); Red Blood Count 4.21 m/uL (4.00-5.20)
[2024-10-09] MEDS: IBUPROFEN 600 MG TABLET PO (21:47)
[2024-10-09 21:49] LABS: Slide Review Reflex No
[2024-10-09] MEDS: MAGNESIUM Infusion 40 GM/1,000 ML IV.SOLN IVPB (22:00)
[2024-10-09 22:01] LABS: Blood Urea Nitrogen* 11 mg/dL (5-24); Creatinine* 0.8 mg/dL (0.5-1.5); Est. Creatinine Clearance* 86.61; Estimated Glomerular Filt Rate 103 ml/min
[2024-10-09 22:02] LABS: Alanine Aminotransferase* 19 U/L (4-35); Aspartate Amino Transferase* 35 U/L (12-35)
--- NOTE | 2024-10-09 22:04 | PM.OBCN1 ---
OB - CN: HPI Date of Consult Time Seen by Provider: 22:04 Date Seen: 10/09/24 Patient: [facility] Patient Consult date: 10/09/24 Requesting Physician: Trung Boyd CNM Primary Care Provider: Not a Local Provider Consult Narrative Reason for consult: gestational hypertension (Severe range BP) Narrative: Tammi is a 29 year old G 2 P 1 now 2 at 37 and 0/7 weeks gestation that was admitted to the Center on 10/09/24 for an induction of labor due to gestational hypertension. She received 2 doses of Cytotec followed by IV Pitocin. She was laboring in the birthing tub and was planning on a water but unfortunately, her blood pressure spiked to severe range and she was started on magnesium for seizure prophylaxis and received 2 doses of IV labetalol at the time of this note. She had severe preeclampsia with her previous delivery and had problems with flushing on nifedipine so prefers a different antihypertensive. I ordered labetalol 200 mg p.o. t.i.d. to start in the morning. She had a normal spontaneous vaginal delivery at 21:16 today. She had a first-degree laceration that was not repaired. She had a normal amount of blood loss. She had a baby boy who needed a small amount of respiratory support after delivery as the patient had received fentanyl for analgesia within 30 minutes of delivery. I recommended a no other set of preeclampsia labs as she developed severe preeclampsia by blood pressure criteria recently. I also ordered serum preeclampsia labs every 6 hours while she is on magnesium. Magnesium will be discontinued tomorrow at 21:16. Had a verbal consultation with Trung Boyd CNM and the patient is aware of these recommendations. The patient denies headache, visual disturbance, right upper quadrant pain and swelling. History of Present complications: preeclampsia (Severe by blood pressure criteria) History History 2 Elective abortions Para 1 Spontaneous abortions Hx # Term Pregnancies 1 Ectopic pregnancies Hx # Pregnancies Multiple births Number of Living Children 1 Past Pregnancies Del. Date GA/Weeks Outcome Route wt Inf Gender Labor Lgth Anesthesia Location Provider Compli 08/05/22 37 live - full term 6 lb 10 oz Female 7 hours other LEANNE Muñoz w/ CHAVA Michaud preeclampsia Delivery Date: 08/05/22 Last Updated by: Karolyn R Gonzalez, CNM Nitrous for pain relief. Waterbirth. PP magnesium x24 hours Labs GBS status: negative OB Labs: Lab Assessment Start: 10/09/24 07:44 Freq: ONCE Status: Active Protocol: PC.OBGBS Activity Type Activity Date Activity User E-sign Co-sign Detail Recorded Client Recorded Date Recorded By Document 10/09/24 16:19 JRS No Response 10/09/24 16:21 JRS 10/09/24 16:19 Lab Assessment GBS Status negative GBS Additional Criteria None No Treatment Needed OK Are Labs Available Yes Maternal Blood Type A Maternal RH Factor Positive Evaluate Maternal Rubella Immune Status Immune Hepatitis B Surface Antigen Negative Maternal HIV Status Negative Maternal Syphillis (RPR) Status Negative [facility] Medical History (Updated 10/09/24 @ 22:11 by Harriet Parra MD) Severe preeclampsia (10/09/24) ?O14.10 - Severe pre-eclampsia, unspecified trimester (ICD-10) Eczema ?L30.9 - Dermatitis, unspecified (ICD-10) Second degree perineal laceration (08/05/22) ?O70.1 - Second degree perineal laceration during delivery (ICD-10) (normal spontaneous vaginal delivery) (08/05/22) ?O80 - Encounter for full-term uncomplicated delivery (ICD-10) Kidney stone complicating ?O26.839 - related renal disease, unspecified trimester (ICD-10) ?N20.0 - Calculus of kidney (ICD-10) 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 Marital status: . Scientologist/cultural needs: no. Chemical or radiation exposure: no. Pre- tobacco use: no. Pre- alcohol use: no. Current tobacco use: no. Current alcohol use: no. Recreational drug use: no. Dietary restrictions: no. Blood transfusion acceptable in an emergency: yes. PSYCHOSOCIAL HISTORY: History of depression or currently depressed: no. Current or past physical, emotional, or sexual mistreatment: no. Problems that will make it hard to make it to appointments: no. What is your current living situation?: I presently have a place to live Problems where you live: no known problems In the past 12 months, utilities in danger of being shut off: no In past 12 months, lack of transportation kept you from medical appts, meetings, work, or getting things needed for daily living: no In the past 12 mos, have been you worried that your food would run out before you had money to buy more?: never true In the past 12 mos, the food you bought just didn't last and you didn't have money to buy more?: never true Smoking Status: Never smoker How often does anyone, including family, friends and others, physically hurt you: never How often does anyone, including family, friends and others, insult or talk down to you: never How often does anyone, including family, friends and others, threaten you with harm: never How often does anyone, including family, friends and others, scream or curse at you: never Meds Home Medications and Allergies Home Medications ?Medication ?Instructions ?Recorded ?Confirmed ?Type prenat.vits,domonique,[id number] 1 tab PO QDAY 01/16/22 10/09/24 History miscellaneous medical supply #1 ea 07/12/22 10/09/24 Rx (Blood Pressure Cuff) triamcinolone acetonide 0.025 % 1 applic topical QDAY PRN 03/22/24 10/09/24 History topical cream aspirin 81 mg tablet,delayed 81 mg PO QDAY 05/22/24 10/09/24 History release (Adult Aspirin Regimen) hydroxyzine HCl 25 mg tablet 25 mg PO TID PRN anxiety #30 tabs 08/23/24 10/09/24 Rx Allergies Allergy/AdvReac Type Severity Reaction Status Date / Time No Known Drug Allergies Allergy Verified 10/04/24 08:29 OB - H&P: Exam Physical Exam: Vital signs: Temp Pulse Resp BP Pulse Ox 98.5 F 83 18 156/97 H 99 10/09/24 18:42 10/09/24 22:02 10/09/24 18:42 10/09/24 22:02 10/09/24 21:14 Narrative: General: Pleasant, , well groomed woman who is somewhat anxious about her preeclampsia diagnosis but doing well. Vital signs: Included in her electronic medical record. Heart: Regular rate and rhythm without gallop, rub or murmur. Chest: Clear to auscultation bilaterally. Extremities: No pain or edema. OB - Results Labs Labs: Short CBC 10/09/24 10/09/24 Range/Units 08:45 21:40 WBC 8.37 13.20 H (4.50-11.00) K/uL Hgb 11.4 L 12.0 (12.0-16.0) gm/dL Hct 34.6 36.3 (33.0-51.0) % Plt Count 220 260 (140-440) K/uL BMP 10/09/24 08:45 Creatinine 0.8 Liver Function 10/09/24 Range/Units 08:45 AST 29 (12-35) U/L ALT 18 (4-35) U/L OB - CN: A/P Assessment and Plan (1) Gestational hypertension: Status: Deleted (2) Proteinuria affecting , antepartum: Status: Acute (3) BMI 35.0-35.9,adult: Status: Acute (4) Severe preeclampsia: Status: Acute Plan 1. Continue magnesium sulfate for seizure prophylaxis until the patient is 24 hours . 2. Serum preeclampsia labs every 6 hours while on magnesium. 3. Start labetalol 200 mg p.o. t.i.d. at 9:00 a.m. tomorrow morning. The patient had significant facial flushing with nifedipine after her 1st delivery. 4. Continue IV labetalol and/or hydralazine for severe range blood pressures overnight.
[2024-10-10] VITALS (12 sets, daily range): BP systolic 113–150; BP diastolic 77–102; PULSE 77–86; RESP 12–26; TEMP 36.3–36.7; O2SAT 96–99
[2024-10-10] MEDS: LABETALOL HCL 100 MG TABLET 200 MG PO (01:49)
[2024-10-10] MEDS: LACTATED RINGERS 1000 ML 1,000 ML 125 ML IV (02:30)
[2024-10-10] MEDS: ACETAMINOPHEN 500 MG TABLET 1000 MG PO ×3 (02:30→22:21)
--- NOTE | 2024-10-10 02:35 | P.OBPN_ITS ---
OB - PN:Subj Subjective Time Seen by Provider: 02:15 Date Seen: 10/10/24 Patient comments OB post-: pain well controlled, tolerating diet, flatus present and other (Feels groggy on Magnesium.) [place] status: [place] feeding status: exclusively Narrative: Tammi feels groggy on magnesium. She feels her pain is under good control. She does not have heavy vaginal bleeding. She is tolerating a regular diet. She has not been ambulating since delivery. She does not have a Quintana catheter in place and has been urinating without difficulty. Her labs have all been normal except for creatinine that is on the high end of normal: 0.8. Her protein/creatinine ratio has been elevated throughout her . Her blood pressure in her room at the time that I saw her was 150/102. I had the nurse give her 1 dose of oral labetalol 200 mg. I also increased her t.i.d. labetalol from 200 mg to 400 mg. She had problems with her face and chest flashing on nifedipine after her last baby so I am trying to control her blood pressure with labetalol rather than nifedipine. She denies swelling, headaches, visual disturbance and right upper quadrant pain. All of her questions were answered regarding preeclampsia and hypertension. OB - PN: Obj Exam Physical Exam: Vital signs: Temp Pulse Resp BP Pulse Ox 97.4 F L 78 18 131/83 99 10/09/24 22:30 10/09/24 23:44 10/09/24 18:42 10/10/24 02:08 10/09/24 21:14 Narrative: General: Pleasant, , well groomed woman in no acute distress. Vital signs: Per her electronic medical record. Heart: Regular rate and rhythm without gallop, rub or murmur. Chest: Clear to auscultation bilaterally. Abdomen: Soft, nontender and nondistended with normal bowel sounds throughout. Fundus is firm at 1 cm below the umbilicus in the midline. Lochia: Small rubra. Extremities: No pain or edema. Neurologic: DTRs at bilateral patella: 2+/2 no clonus. OB - PN: Obj Data Labs Labs: Laboratory Results - last 24 hr 10/09/24 10/09/24 10/09/24 08:16 08:45 21:40 WBC 8.37 13.20 H RBC 4.00 4.21 Hgb 11.4 L 12.0 Hct 34.6 36.3 MCV 87 86 MCH 29 29 MCHC 33 33 Plt Count 220 260 BUN 11 Creatinine 0.8 0.8 Estimated Creat Clear 86.61 86.61 Estimated GFR 103 103 AST 29 35 ALT 18 19 Urine Creatinine 104.8 Protein/Creatinin Ratio 0.47 H Urine Total Protein 49 Blood Type A Positive Antibody Screen NEGATIVE OB - PN: A/P Delivery Assessment and Plan (1) Gestational hypertension: Status: Deleted (2) Proteinuria affecting , antepartum: Status: Acute (3) BMI 35.0-35.9,adult: Status: Acute (4) Severe preeclampsia: Status: Acute Plan 1. Given 1 dose of labetalol 200 mg by mouth now. 2. Continue to monitor blood pressure closely. 3. Continue serum preeclampsia labs every 6 hours. 4. Increase t.i.d. labetalol from 200 mg to 400 mg. 5. Cancel daily nifedipine. 6. Continue cares. 7. Magnesium sulfate for seizure prophylaxis until 21:16 today. Plan day: 1
[2024-10-10] MEDS: IBUPROFEN 600 MG TABLET PO ×3 (04:16→16:26)
[2024-10-10 06:52] LABS: Mean Corpuscular HGB Conc 33 gm/dL (32-36); Mean Corpuscular Hemoglobin 29 pg (26-34); Mean Corpuscular Volume 86 fL (80-100); Platelet Count* 223 K/uL (140-440); Red Blood Count 3.83 m/uL (4.00-5.20)
[2024-10-10 06:54] LABS: Slide Review Reflex No
[2024-10-10 07:07] LABS: Alanine Aminotransferase* 17 U/L (4-35); Aspartate Amino Transferase* 27 U/L (12-35); Blood Urea Nitrogen* 9 mg/dL (5-24); Creatinine* 0.7 mg/dL (0.5-1.5); Est. Creatinine Clearance* 98.98; Estimated Glomerular Filt Rate 121 ml/min
[2024-10-10 07:13] LABS: Magnesium* 6.1 mg/dL (1.5-2.6)
[2024-10-10] MEDS: DOCUSATE SODIUM 100 MG CAPSULE PO (09:02)
[2024-10-10] MEDS: LABETALOL HCL 100 MG TABLET 400 MG PO ×3 (09:02→22:20)
[2024-10-10] MEDS: ONDANSETRON 2 MG/ML inj 4 MG IVP (10:27)
[2024-10-10 11:23] LABS: Hematocrit 32.1 % (33.0-51.0); Hemoglobin* 10.8 gm/dL (12.0-16.0); Mean Corpuscular HGB Conc 34 gm/dL (32-36); Mean Corpuscular Hemoglobin 29 pg (26-34); Mean Corpuscular Volume 86 fL (80-100); Platelet Count* 225 K/uL (140-440); Red Blood Count 3.74 m/uL (4.00-5.20); White Blood Count* 14.63 K/uL (4.50-11.00)
[2024-10-10 11:30] LABS: Slide Review Reflex No
[2024-10-10 11:37] LABS: Blood Urea Nitrogen* 9 mg/dL (5-24); Creatinine* 0.9 mg/dL (0.5-1.5); Est. Creatinine Clearance* 76.98; Estimated Glomerular Filt Rate 89 ml/min
[2024-10-10 11:38] LABS: Alanine Aminotransferase* 16 U/L (4-35); Aspartate Amino Transferase* 27 U/L (12-35)
[2024-10-10 11:44] LABS: Magnesium* 6.5 mg/dL (1.5-2.6)
[2024-10-10] MEDS: MAGNESIUM Infusion 40 GM/1,000 ML IV.SOLN IVPB (11:57)
[2024-10-10] MEDS: LACTATED RINGERS 1000 ML 1,000 ML 75 ML IV (15:50)
[2024-10-10 18:18] LABS: Hematocrit 31.1 % (33.0-51.0); Hemoglobin* 10.3 gm/dL (12.0-16.0); Mean Corpuscular HGB Conc 33 gm/dL (32-36); Mean Corpuscular Hemoglobin 29 pg (26-34); Mean Corpuscular Volume 87 fL (80-100); Platelet Count* 235 K/uL (140-440); Red Blood Count 3.59 m/uL (4.00-5.20); White Blood Count* 12.99 K/uL (4.50-11.00)
[2024-10-10 18:20] LABS: Slide Review Reflex No
[2024-10-10 18:40] LABS: Alanine Aminotransferase* 15 U/L (4-35); Aspartate Amino Transferase* 24 U/L (12-35); Blood Urea Nitrogen* 11 mg/dL (5-24); Creatinine* 0.9 mg/dL (0.5-1.5); Est. Creatinine Clearance* 76.98; Estimated Glomerular Filt Rate 89 ml/min
[2024-10-10 18:46] LABS: Magnesium* 4.9 mg/dL (1.5-2.6)
[2024-10-11] VITALS (11 sets, daily range): BP systolic 115–167; BP diastolic 75–102; PULSE 72–80; RESP 16–20; TEMP 36.5–37; O2SAT 96–98
[2024-10-11] MEDS: IBUPROFEN 600 MG TABLET PO ×4 (01:28→20:52)
[2024-10-11 01:34] LABS: Hematocrit 30.9 % (33.0-51.0); Hemoglobin* 10.1 gm/dL (12.0-16.0); Mean Corpuscular HGB Conc 33 gm/dL (32-36); Mean Corpuscular Hemoglobin 29 pg (26-34); Mean Corpuscular Volume 88 fL (80-100); Platelet Count* 259 K/uL (140-440); Red Blood Count 3.53 m/uL (4.00-5.20); White Blood Count* 11.17 K/uL (4.50-11.00)
[2024-10-11 01:36] LABS: Slide Review Reflex No
[2024-10-11 02:00] LABS: Alanine Aminotransferase* 13 U/L (4-35); Aspartate Amino Transferase* 22 U/L (12-35); Blood Urea Nitrogen* 12 mg/dL (5-24); Creatinine* 0.8 mg/dL (0.5-1.5); Est. Creatinine Clearance* 86.61; Estimated Glomerular Filt Rate 103 ml/min; Magnesium* 3.4 mg/dL (1.5-2.6)
[2024-10-11] MEDS: ACETAMINOPHEN 500 MG TABLET 1000 MG PO (04:33)
[2024-10-11] MEDS: LABETALOL HCL 100 MG TABLET 400 MG PO ×2 (09:16→14:05)
[2024-10-11] MEDS: DOCUSATE SODIUM 100 MG CAPSULE PO (09:19)
--- NOTE | 2024-10-11 09:46 | PM.OBPNVD1 ---
OB - PN:Subj Subjective Time Seen by Provider: 09:35 Date Seen: 10/11/24 Patient comments OB post-: no complaints status: Narrative: Tammi feels well this morning. She was surprised how quickly she felt better once the magnesium infusion was discontinued. She has no concerns today. Bleeding in minimal, cramping is controlled. OB - PN: Obj Exam Physical Exam: Vital signs: Temp Pulse Resp BP Pulse Ox O2 Del Method 97.9 F 73 16 129/84 98 Room Air 10/11/24 07:41 10/11/24 07:41 10/11/24 07:41 10/11/24 07:41 10/11/24 07:41 10/11/24 07:41 Constitutional: Constitutional: no acute distress Routine Neck Exam: Neck: Present normal inspection Routine Abdominal Exam: Abdominal: Present soft; Absent tenderness Fundus: Present firm Routine Extremities Exam: Extremities: Present normal inspection and pedal edema; Absent calf tenderness Routine Neurological Exam: Neurological: Present alert and oriented X3 Routine Psychiatric Exam: Psychiatric: Present normal affect OB - PN: Obj Data Labs Labs: Laboratory Results - last 24 hr 10/10/24 10/10/24 10/11/24 11:16 18:13 01:25 WBC 14.63 H 12.99 H 11.17 H RBC 3.74 L 3.59 L 3.53 L Hgb 10.8 L 10.3 L 10.1 L Hct 32.1 L 31.1 L 30.9 L MCV 86 87 88 MCH 29 29 29 MCHC 34 33 33 Plt Count 225 235 259 BUN 9 11 12 Creatinine 0.9 0.9 0.8 Estimated Creat Clear 76.98 76.98 86.61 Estimated GFR 89 89 103 Magnesium 6.5 H* 4.9 H* 3.4 H AST 27 24 22 ALT 16 15 13 OB - PN: A/P Delivery Assessment and Plan (1) Gestational hypertension: Status: Deleted (2) Proteinuria affecting , antepartum: Status: Acute (3) BMI 35.0-35.9,adult: Status: Acute (4) Severe preeclampsia: Status: Acute Plan day: 2 Plan: routine care Comments: Will reassess BP control later this afternoon. If well controlled, consider discharge at dinner time tonight on current labetalol dosage. We discussed home BP monitoring and close follow up. Total time spent: 10 minutes.
[2024-10-11] MEDS: LABETALOL HCL 100 MG TABLET 200 MG PO ×2 (14:20→21:22)
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
[2024-10-11] MEDS: LABETALOL HCL 100 MG TABLET 600 MG PO (20:52)
[2024-10-12 04:10] VITALS: BP 134/86; PULSE 82; RESP 16; TEMP 36.8; O2SAT 96
[2024-10-12 08:05] VITALS: BP 140/87; PULSE 70; RESP 16; TEMP 36.8; O2SAT 97
[2024-10-12] MEDS: LABETALOL HCL 100 MG TABLET 600 MG PO (08:07)
[2024-10-12] MEDS: ACETAMINOPHEN 500 MG TABLET 1000 MG PO (08:09)
[2024-10-12] MEDS: LABETALOL HCL 100 MG TABLET 200 MG PO (08:25)
--- NOTE | 2024-10-12 08:39 | P.DS_ITS ---
DS: Providers Provider Date Seen: 10/12/24 Date of admission: 10/09/24 07:27 Primary care physician: Not a Local Provider Admitting Clinician: Trung Boyd CNM Consults: 10/09/24 22:03 Consult to Physician [CONS] Routine Comment: Consulting Provider: Harriet Parra Has provider been notified: Yes Attending Physician on discharge: MD Randall Date of Discharge: 10/12/24 DS: Diagnosis Discharge Diagnosis (1) Severe preeclampsia: Status: Acute (2) (normal spontaneous vaginal delivery): Status: Acute (3) Proteinuria affecting , antepartum: Status: Acute Exam Narrative: Exam Narrative: GENERAL APPEARANCE:? normal affect, alert, no distress MOOD:? appropriate CHEST:? clear to auscultation HEART:? regular rate and rhythm ABDOMEN:? soft, non-tender the uterine fundus is At Umbilicus, Midline and is appropriate for the stage of recovery. EXTREMITIES:? normal and trace edema Const: Vital Signs, click to edit/add: Vital Signs - 24 hr 10/11/24 10:15 10/11/24 10:31 10/11/24 13:40 Temperature Pulse Rate [Pulse Oximeter] Respiratory Rate Blood Pressure [Le ft Arm] 141/90 H 120/75 144/81 H Pulse Oximetry Oxygen Delivery Me thod 10/11/24 14:08 10/11/24 16:00 10/11/24 20:37 Temperature 98.0 F 98.6 F Pulse Rate [Pulse Oximeter] 80 80 Respiratory Rate 16 16 Blood Pressure [Le ft Arm] 167/102 H 124/83 150/84 H Pulse Oximetry 98 97 Oxygen Delivery Me thod Room Air Room Air 10/11/24 20:54 10/11/24 23:32 10/12/24 04:10 Temperature 98.2 F Pulse Rate [Pulse Oximeter] 72 82 Respiratory Rate 16 16 Blood Pressure [Le ft Arm] 151/88 H 127/78 134/86 Pulse Oximetry 96 96 Oxygen Delivery Me thod Room Air Room Air 10/12/24 08:05 Temperature 98.2 F Pulse Rate [Pulse Oximeter] 70 Respiratory Rate 16 Blood Pressure [Le ft Arm] 140/87 H Pulse Oximetry 97 Oxygen Delivery Me thod Room Air OB - DS: Summary Hospital Course Hospital Course: The patient is a 29 year old G 2 P 2 at 37 0/7 weeks gestation that was admitted to the Center on 10/09/24 for IOL in the setting of GHTN. During the course of IOL patient developed severely elevated BPs and was diagnosed with GHTN with superimposed severe features. She had an uncomplicated vaginal delivery. She delivered a viable male . She is breast feeding. the patient has done well. Today, blood pressures have remained better controlled, she does respond well to Labetalol 800mg and she will be discharged home to continued Labetalol 800mg TID. 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 Meeting all milestones. Peripartum Data Infant delivery method: Vaginal Laceration description: Periurethral - 1st Degree Episiotomy description: None Procedures: complications: none Gender: Male Infant Discharge Plan: Home Status at Discharge Functional status at discharge: independent ambulation Overall status at discharge: patient is progressing back to baseline Time Spent with Patient Time attestation: Total time spent providing and/or coordinating discharge services: Time spent: Less than 30 minutes Discharge Plan Discharge Disposition: Home, Self-Care Date of Admission: 10/09/24 07:27 Attending Provider on Discharge: Sonya Pereira Consulting Providers: Harriet Parra Primary Care Provider: Provider,Not a Local Condition: Stable Anticipated Discharge Date/Time: 10/12/24 12:00 Discharge Medications: New acetaminophen 500 mg Tablet 1,000 mg PO Q6H PRNQty: 30 0RF ibuprofen 600 mg Tablet 600 mg PO Q6H PRNQty: 30 0RF labetalol 400 mg tablet 800 mg PO TID Qty: 90 2RF Continued prenat.vits,domonique,[id number]-[id number] Tablet 1 tab PO QDAY hydroxyzine HCl 25 mg tablet 25 mg PO TID PRN (Reason: anxiety) Qty: 30 1RF triamcinolone acetonide 0.025 % cream 1 applic topical QDAY PRN (DME) Blood Pressure Cuff Misc See Rx Instructions .Route Qty: 1 0RF Rx Instructions: As directed Discontinued aspirin [Adult Aspirin Regimen] 81 mg tablet,delayed release (DR/EC) 81 mg PO QDAY Discharge Orders: Discharge Order (Routine); Ordered 10/12/24 Ordered By: Sonya Pereira Patient Education: OB Vaginal/Breast Feeding Additional Instructions: Measure blood pressures at home twice a day. Notify clinic if there are blood pressures persistently more than 150 systolics, 100s diastolics or if any symptoms such as headaches that do not go away with pain medication, visual changes such as dark spots in vision, pain in the upper abdomen-that moves towards the upper right side. Notify clinic if there are blood pressures persistently less than 90 seconds systolics, 50s diastolics or if there is any associated symptoms such as light headedness, dizziness, shortness of breath, heart palpitations. Follow-up in clinic in 3-5 days after discharge for blood pressure check, review of antihypertensive medication regimen. Follow-up in clinic in 2 weeks for mood and follow-up. Follow-up in 6 weeks in clinic for regular visit. Activity Level: Activity as Tolerated Activity Detail: Noting vaginally for 6 weeks Discharge Diet: Regular Follow Up Appointments: Provider,Not a Local [Primary Care Provider, Family Practice] Forms: Pocket Concierge Info Instructions
[2024-10-12 08:50] VITALS: BP 123/82
== END 2024-10-12 10:30 | disposition home or self-care (01) | DRG 807 ==
PROVIDERS: Obstetrics & Gynecology; Admitting Provider Advanced Practice Midwife; Visit Provider Advanced Practice Midwife
DX: O13.4 Gestational [pregnancy-induced] hypertension without significant proteinuria, complicating childbirth (principal); Z37.0 Single live birth; Z3A.37 37 weeks gestation of pregnancy; O12.14 Gestational proteinuria, complicating childbirth; O99.214 Obesity complicating childbirth; Z87.59 Personal history of other complications of pregnancy, childbirth and the puerperium; O14.14 Severe pre-eclampsia complicating childbirth; O70.0 First degree perineal laceration during delivery
CPT/HCPCS: 36415; 59200; 82565; 82570; 83735; 84156; 84450; 84460; 84520; 85027; 86592; 86850; 86900; 86901; 88307; A9270; J2405; J3010; J3475; J7120

== ENCOUNTER 2025-02-02 08:00 | Outpatient (CLI) | payer OTHER, SELFPAY | END 2025-02-02 08:01 | disposition home or self-care (01) | LOC: NFLDREF 02-07 08:55 | PROVIDERS: Visit Provider Internal Medicine Nephrology | DX: R80.9 Proteinuria, unspecified (principal); N39.0 Urinary tract infection, site not specified | CPT/HCPCS: 80069; 82043; 82570; 84156; 84450; 84460; 87086 ==

== ENCOUNTER 2025-02-07 08:19 | Outpatient (CLI) | payer OTHER, SELFPAY | END 2025-02-07 08:20 | disposition home or self-care (01) | LOC: NFLDREF 02-11 03:46 | PROVIDERS: Visit Provider Internal Medicine Nephrology | DX: R80.9 Proteinuria, unspecified (principal) | CPT/HCPCS: 82570; 84156 ==